=== PATIENT | female | born 1935 | race Caucasian/White ===

== ENCOUNTER 2017-05-24 07:56 | Inpatient (IN) | payer MEDICARE ==
[2017-05-24] VITALS (9 sets, daily range): BP systolic 98–137; BP diastolic 56–87
[~2017-05-24] VITALS: Ht 165.1 cm; Wt 60.0 kg
[2017-05-24] MEDS ORDERED: nitroGLYCERIN 0.2mg/hour patch TD ONE (08:05)
[2017-05-24] MEDS ORDERED: normal saline 1000ML IV soln IVB ONE (08:05)
[2017-05-24] MEDS ORDERED: magnesium 2GM in 50ml NS 50 ML IV ONE (08:10)
[2017-05-24] MEDS ORDERED: diltiazem 5mg/ml 5ml inj. IV ONE (08:20)
[2017-05-24 08:37] LABS: BASOPHILS % (AUTO) 0.4 % (0-1); EOSINOPHILS # (AUTO) 0.1 X10'3 (0-0.9); EOSINOPHILS % (AUTO) 1.6 % (0-6); HEMATOCRIT 42.6 % (35.0-45.0); HEMOGLOBIN 14.3 g/dl (12.0-16.0); LYMPHOCYTES # (AUTO) 1.3 X10'3 (1.1-4.8); LYMPHOCYTES % (AUTO) 22.7 % (21-51); MEAN CORPUSCULAR HEMOGLOBIN 30.4 PG (27.0-31.0); MEAN CORPUSCULAR HGB CONC 33.4 % (33.0-36.5); MEAN CORPUSCULAR VOLUME 90.9 FL (78-98); MEAN PLATELET VOLUME 8.5 FL (7.4-10.4); MONOCYTES # (AUTO) 0.4 X10'3 (0-0.9); MONOCYTES % (AUTO) 7.5 % (2-12); NEUTROPHILS % (AUTO) 67.8 % (42-75); PLATELET COUNT 215 X10'3 (140-440); RED BLOOD COUNT 4.69 X10'6 (4.20-5.60); RED CELL DISTRIBUTION WIDTH 14.1 % (11.5-14.5); WHITE BLOOD COUNT 5.9 X10'3 (4.5-11.0)
[2017-05-24 08:52] LABS: INR 1.1 INR; PARTIAL THROMBOPLASTIN TIME 39 SECONDS (22-32); PROTHROMBIN TIME 11.6 SECONDS (9.0-12.0)
[2017-05-24 09:08] LABS: CREATINE KINASE 41 U/L (26-192); ETHANOL < 0.010 GM/DL (0.0-0.010); LIPASE 132 U/L (73-393); MAGNESIUM 2.1 MG/DL (1.5-2.4); PHOSPHORUS 2.8 MG/DL (2.3-4.5)
[2017-05-24 09:31] LABS: CLARITY,URINE Clear (Clear); COLOR,URINE Dark Yellow (Yellow); GLUCOSE, URINE Negative (Neg); KETONES,URINE Negative (Neg); LEUKOCYTE ESTERASE ,URINE Negative (Neg); NITRITES, URINE Negative (Neg); OCCULT BLOOD,URINE Moderate (Neg); PH,URINE 5.5 (4.8-8.0); PROTEIN,URINE Negative (Neg)
[2017-05-24 09:32] LABS: UA COLLECTION TYPE STRAIGHT CATH
[2017-05-24 09:37] LABS: BACTERIA,URINE NONE SEEN /HPF (Neg); RBC,URINE 50-100 /HPF (0-2); SQUAMOUS EPITHELIAL CELL,UR NONE SEEN /LPF (FEW); WBC,URINE 0-4 /HPF (0-4)
[2017-05-24 09:38] LABS: HYALINE CASTS 0-3 /LPF (NEGATIVE); MUCUS STRANDS MODERATE /LPF (Neg)
[2017-05-24] MEDS ORDERED: LEVO75TA PO (10:17)
[2017-05-24] MEDS ORDERED: DABI150C PO (10:17)
[2017-05-24] MEDS ORDERED: GABA-532 PO (10:17)
[2017-05-24 10:20] LABS: ALANINE AMINOTRANSFERASE 19 U/L (12-78); ALBUMIN 3.4 G/DL (3.4-5.0); ALBUMIN/GLOBULIN RATIO 1.1 (1.1-1.5); ALKALINE PHOSPHATASE 74 IU/L (46-116); ANION GAP 10 (8-16); ASPARTATE AMINO TRANSFERASE 25 U/L (10-37); BILIRUBIN,TOTAL 0.4 MG/DL (0.1-1.0); BLOOD UREA NITROGEN 14 MG/DL (7-18); CALCIUM 8.9 MG/DL (8.5-10.1); CHLORIDE 108 MMOL/L (99-107); GLUCOSE 114 MG/DL (70-104); POTASSIUM 4.4 MMOL/L (3.5-5.1); SODIUM 144 MMOL/L (135-145); TOTAL CARBON DIOXIDE 25.7 MMOL/L (24-32); TOTAL PROTEIN 6.6 G/DL (6.4-8.2); eGFR 53 ML/MIN
[2017-05-24] MEDS ORDERED: TRAM50TA2 PO (10:21)
[2017-05-24] MEDS ORDERED: TRAZ150T78 PO (10:21)
[2017-05-24] MEDS ORDERED: ACET-812 PO (10:21)
[2017-05-24] MEDS ORDERED: dabigatran 150mg capsule PO ONE (10:25)
[2017-05-24] MEDS ORDERED: ondansetron/PF 4mg/2ml inj IV PRN (11:40)
[2017-05-24] MEDS ORDERED: metoprolol tartrate 1mg/ml inj IV PRN (11:40)
[2017-05-24] MEDS ORDERED: HYDROcodone/acetaminophen 10/325mg tab PO PRN (11:40)
[2017-05-24] MEDS ORDERED: potassium Cl 20 mEq SR tablet PO PRN ×2 (11:40)
[2017-05-24] MEDS ORDERED: magnesium hydroxide 30ml (MOM) UD suspension PO PRN (11:40)
[2017-05-24] MEDS ORDERED: magnesium 4gm in 100ml NS 100 ML IV PRN (11:40)
[2017-05-24] MEDS ORDERED: potassium Cl 40MEQ/NS 500ml 500 ML IV PRN ×2 (11:40)
[2017-05-24] MEDS ORDERED: regadenoson 0.4mg/5ml syringe IV ONE ×2 (11:40→13:32)
[2017-05-24] MEDS ORDERED: HYDROcodone/acetaminophen 5mg/325mg tablet PO PRN (11:40)
[2017-05-24] MEDS ORDERED: nitroGLYCERIN 0.4mg SUBLingual tab SL PRN (11:40)
[2017-05-24] MEDS ORDERED: mag hydrox/Alum hydrox/simeth 30ml oral suspension PO PRN (11:40)
[2017-05-24] MEDS ORDERED: aminophylline 250mg/10ml inj. IV PRN (11:40)
[2017-05-24] MEDS ORDERED: magnesium Cl slow-release 64mg tablet PO PRN (11:40)
[2017-05-24] MEDS ORDERED: acetaminophen 325mg tablet PO PRN (11:40)
[2017-05-24] MEDS ORDERED: magnesium 2GM in 50ml NS 50 ML IV PRN (11:40)
[2017-05-24] MEDS: normal saline 1000ml 1,000 ML IV SCH (12:17)
[2017-05-24] MEDS ORDERED: levoFLOXACIN 250mg tablet PO ONE (12:48)
[2017-05-24] MEDS ORDERED: aminophylline inj. 0 ML IV ONE (13:32)
[2017-05-24] MEDS: dabigatran 150mg capsule PO SCH (19:48)
[2017-05-24] MEDS: gabapentin 300mg capsule PO SCH (19:48)
[2017-05-24] MEDS ORDERED: temazepam 15mg capsule PO PRN (21:00)
[2017-05-24] MEDS: acetaminophen 325mg tablet PO PRN (22:39)
[2017-05-25] VITALS: BP 130/57
[2017-05-25] MEDS: normal saline 1000ml 1,000 ML IV SCH (01:51)
[2017-05-25 05:32] LABS: BASOPHILS % (AUTO) 0.3 % (0-1); EOSINOPHILS # (AUTO) 0.1 X10'3 (0-0.9); EOSINOPHILS % (AUTO) 2.2 % (0-6); HEMATOCRIT 38.3 % (35.0-45.0); HEMOGLOBIN 12.7 g/dl (12.0-16.0); LYMPHOCYTES # (AUTO) 1.4 X10'3 (1.1-4.8); MEAN CORPUSCULAR HEMOGLOBIN 30.5 PG (27.0-31.0); MEAN CORPUSCULAR HGB CONC 33.2 % (33.0-36.5); MEAN PLATELET VOLUME 8.8 FL (7.4-10.4); MONOCYTES # (AUTO) 0.4 X10'3 (0-0.9); MONOCYTES % (AUTO) 9.2 % (2-12); NEUTROPHILS # (AUTO) 2.5 X10'3 (1.8-7.7); NEUTROPHILS % (AUTO) 56.3 % (42-75); PLATELET COUNT 186 X10'3 (140-440); RED BLOOD COUNT 4.16 X10'6 (4.20-5.60); RED CELL DISTRIBUTION WIDTH 14.4 % (11.5-14.5); WHITE BLOOD COUNT 4.4 X10'3 (4.5-11.0)
[2017-05-25 06:14] LABS: ALBUMIN 2.9 G/DL (3.4-5.0); ANION GAP 8 (8-16); BLOOD UREA NITROGEN 13 MG/DL (7-18); CALCIUM 8.3 MG/DL (8.5-10.1); CHLORIDE 111 MMOL/L (99-107); GLUCOSE 80 MG/DL (70-104); MAGNESIUM 2.2 MG/DL (1.5-2.4); POTASSIUM 4.2 MMOL/L (3.5-5.1); SODIUM 145 MMOL/L (135-145); TOTAL CARBON DIOXIDE 25.9 MMOL/L (24-32); eGFR 53 ML/MIN
[2017-05-25 07:00] VITALS: BP 141/80
[2017-05-25] MEDS ORDERED: pantoprazole 40mg Tablet.DR PO SCH (07:30)
[2017-05-25] MEDS: acetaminophen 325mg tablet PO PRN (07:45)
[2017-05-25] MEDS ORDERED: levoTHYROXINE 75mcg tablet PO SCH (08:00)
[2017-05-25] MEDS ORDERED: enoxaparin 40mg/0.4ml syringe SQ SCH (08:00)
[2017-05-25] MEDS ORDERED: K and/or MAG REPLACEMENT MC SCH (08:00)
[2017-05-25] MEDS: gabapentin 300mg capsule PO SCH (08:32)
[2017-05-25] MEDS: dabigatran 150mg capsule PO SCH (08:32)
[2017-05-25] MEDS ORDERED: levoFLOXACIN 250mg tablet PO SCH (11:00)
[2017-05-25 11:19] VITALS: BP 133/75
[2017-05-25] MEDS ORDERED: ALPR-623 PO (11:43)
== END 2017-05-25 13:45 | disposition home or self-care (01) | DRG 880 ==
LOC: ER 07:56 → ED HOLD 11:04 → MED 3N 11:51
PROVIDERS: ADMIT Internal Medicine; ATTEND Internal Medicine
PROC: 4A02XM4 Measurement of Cardiac Total Activity, External Approach (ICD-10-PCS; principal; 2017-05-24)
PROC: 3E073KZ Introduction of Other Diagnostic Substance into Coronary Artery, Percutaneous Approach (ICD-10-PCS; 2017-05-24)
DX: F41.9 Anxiety disorder, unspecified (principal); I48.2 Chronic atrial fibrillation; R07.89 Other chest pain; E03.9 Hypothyroidism, unspecified; G47.30 Sleep apnea, unspecified; G89.4 Chronic pain syndrome; I10 Essential (primary) hypertension; M19.90 Unspecified osteoarthritis, unspecified site; M54.9 Dorsalgia, unspecified; Z88.2 Allergy status to sulfonamides; Z79.01 Long term (current) use of anticoagulants; Z79.899 Other long term (current) drug therapy; Z90.49 Acquired absence of other specified parts of digestive tract; Z90.710 Acquired absence of both cervix and uterus
CPT/HCPCS: 36415; 71045; 78452; 80048; 80053; 80320; 81001; 82550; 83605; 83690; 83735; 83880; 84100; 84145; 84484; 85025; 85610; 85730; 87070; 93005; 93017; 93306; 96365; 96375; 99285; A9500; J0280; J2785; J3475; J3490; J7030

== ENCOUNTER 2017-12-27 07:21 | Inpatient (IN) | payer MEDICARE ==
[~2017-12-27] VITALS: Ht 165.1 cm; Wt 68.6 kg
[~2017-12-27 07:21] MED LIST: ACET-812 PO; DABI150C PO; GABA-532 PO; LEVO75TA PO; TRAZ150T78 PO
[2017-12-27 07:38] LABS: BASOPHILS % (AUTO) 0.6 % (0-1); EOSINOPHILS # (AUTO) 0.1 X10'3 (0-0.9); HEMOGLOBIN 15.5 g/dl (12.0-16.0); LYMPHOCYTES # (AUTO) 1.3 X10'3 (1.1-4.8); LYMPHOCYTES % (AUTO) 22.5 % (21-51); MEAN CORPUSCULAR HEMOGLOBIN 30.7 PG (27.0-31.0); MEAN CORPUSCULAR HGB CONC 33.7 % (33.0-36.5); MEAN CORPUSCULAR VOLUME 91.1 FL (78-98); MEAN PLATELET VOLUME 8.3 FL (7.4-10.4); MONOCYTES # (AUTO) 0.4 X10'3 (0-0.9); MONOCYTES % (AUTO) 7.7 % (2-12); NEUTROPHILS # (AUTO) 3.9 X10'3 (1.8-7.7); NEUTROPHILS % (AUTO) 67.2 % (42-75); PLATELET COUNT 191 X10'3 (140-440); RED BLOOD COUNT 5.05 X10'6 (4.20-5.60); RED CELL DISTRIBUTION WIDTH 14.2 % (11.5-14.5); WHITE BLOOD COUNT 5.8 X10'3 (4.5-11.0)
[2017-12-27 07:51] LABS: INR 1.3 INR; PARTIAL THROMBOPLASTIN TIME 43 SECONDS (22-32); PROTHROMBIN TIME 13.7 SECONDS (9.0-12.0)
[2017-12-27 07:57] LABS: ALANINE AMINOTRANSFERASE 18 U/L (12-78); ALBUMIN 3.6 G/DL (3.4-5.0); ALKALINE PHOSPHATASE 84 IU/L (46-116); ANION GAP 10 (8-16); ASPARTATE AMINO TRANSFERASE 23 U/L (10-37); BILIRUBIN,TOTAL 0.6 MG/DL (0.1-1.0); BLOOD UREA NITROGEN 20 MG/DL (7-18); BUN/CREATININE RATIO 16.1 (6.6-38.0); CALCIUM 9.5 MG/DL (8.5-10.1); CHLORIDE 103 MMOL/L (99-107); CREATININE 1.24 MG/DL (0.40-0.90); GLUCOSE 103 MG/DL (70-104); SODIUM 142 MMOL/L (135-145); TOTAL CARBON DIOXIDE 29.4 MMOL/L (24-32); TOTAL PROTEIN 7.1 G/DL (6.4-8.2); eGFR 41 ML/MIN
[2017-12-27] MEDS ORDERED: nitroGLYCERIN 0.4mg/hour patch TD ONE (08:35)
[2017-12-27] MEDS ORDERED: ROSU5TAB11 (08:44)
[2017-12-27] MEDS ORDERED: normal saline 1000ml 1,000 ML IV ONE (09:15)
[2017-12-27 09:34] LABS: CLARITY,URINE CLEAR (Clear); COLOR,URINE YELLOW (Yellow); GLUCOSE, URINE NEGATIVE (Neg); KETONES,URINE NEGATIVE (Neg); LEUKOCYTE ESTERASE ,URINE NEGATIVE (Neg); NITRITES, URINE NEGATIVE (Neg); OCCULT BLOOD,URINE LARGE (Neg); PROTEIN,URINE NEGATIVE (Neg); UROBILINOGEN,URINE 0.2 E.U/dL (0.2-1.0)
[2017-12-27 09:39] LABS: UA COLLECTION TYPE CLN CATCH MIDSTREAM
[2017-12-27 09:40] LABS: BACTERIA,URINE NONE SEEN /HPF (Neg); MUCUS STRANDS FEW /LPF (Neg); RBC,URINE 20-50 /HPF (0-2); SQUAMOUS EPITHELIAL CELL,UR NONE SEEN /LPF (FEW); WBC,URINE 0-4 /HPF (0-4)
[2017-12-27] MEDS ORDERED: magnesium hydroxide 30ml (MOM) UD suspension PO PRN (10:00)
[2017-12-27] MEDS ORDERED: ondansetron/PF 4mg/2ml inj IV PRN (10:00)
[2017-12-27] MEDS ORDERED: morphine 4 MG/ML inj SYRINge IV PRN (10:00)
[2017-12-27] MEDS ORDERED: mag hydrox/Alum hydrox/simeth 30ml oral suspension PO PRN (10:00)
[2017-12-27] MEDS: normal saline 1000ml 1,000 ML IV SCH ×2 (10:27→19:57)
[2017-12-27] MEDS ORDERED: traZODone 150mg tablet PO PRN (11:30)
[2017-12-27 13:00] VITALS: BP 118/69
[2017-12-27 15:00] VITALS: BP 106/53
[2017-12-27 19:00] VITALS: BP 119/58
[2017-12-27] MEDS: gabapentin 300mg capsule PO SCH (19:53)
[2017-12-27] MEDS: dabigatran 150mg capsule PO SCH (19:53)
[2017-12-27] MEDS: acetaminophen 325mg tablet PO PRN (20:20)
[2017-12-27 23:00] VITALS: BP 102/57
[2017-12-28 03:00] VITALS: BP 125/74
[2017-12-28 05:59] LABS: ALBUMIN 2.7 G/DL (3.4-5.0); ANION GAP 4 (8-16); BLOOD UREA NITROGEN 16 MG/DL (7-18); BUN/CREATININE RATIO 16.3 (6.6-38.0); CALCIUM 8.1 MG/DL (8.5-10.1); CHLORIDE 109 MMOL/L (99-107); CREATININE 0.98 MG/DL (0.40-0.90); GLUCOSE 87 MG/DL (70-104); POTASSIUM 4.2 MMOL/L (3.5-5.1); SODIUM 142 MMOL/L (135-145); TOTAL CARBON DIOXIDE 29.3 MMOL/L (24-32); eGFR 54 ML/MIN
[2017-12-28 06:00] VITALS: BP 155/70
[2017-12-28 06:00] LABS: BASOPHILS % (AUTO) 0.5 % (0-1); EOSINOPHILS # (AUTO) 0.1 X10'3 (0-0.9); EOSINOPHILS % (AUTO) 1.7 % (0-6); HEMATOCRIT 35.6 % (35.0-45.0); HEMOGLOBIN 12.3 g/dl (12.0-16.0); LYMPHOCYTES # (AUTO) 1.2 X10'3 (1.1-4.8); LYMPHOCYTES % (AUTO) 21.8 % (21-51); MEAN CORPUSCULAR HEMOGLOBIN 31.6 PG (27.0-31.0); MEAN CORPUSCULAR HGB CONC 34.6 % (33.0-36.5); MEAN CORPUSCULAR VOLUME 91.4 FL (78-98); MEAN PLATELET VOLUME 8.9 FL (7.4-10.4); MONOCYTES # (AUTO) 0.5 X10'3 (0-0.9); MONOCYTES % (AUTO) 9.3 % (2-12); NEUTROPHILS # (AUTO) 3.5 X10'3 (1.8-7.7); NEUTROPHILS % (AUTO) 66.7 % (42-75); PLATELET COUNT 156 X10'3 (140-440); RED BLOOD COUNT 3.89 X10'6 (4.20-5.60); RED CELL DISTRIBUTION WIDTH 13.4 % (11.5-14.5); WHITE BLOOD COUNT 5.3 X10'3 (4.5-11.0)
[2017-12-28] MEDS: normal saline 1000ml 1,000 ML IV SCH ×2 (09:14→15:57)
[2017-12-28] MEDS: gabapentin 300mg capsule PO SCH ×2 (09:14→19:47)
[2017-12-28] MEDS: dabigatran 150mg capsule PO SCH ×2 (09:14→19:47)
[2017-12-28] MEDS: acetaminophen 325mg tablet PO PRN ×2 (09:15→19:47)
[2017-12-28] MEDS: levoTHYROXINE 75mcg tablet PO SCH (09:16)
[2017-12-28 11:00] VITALS: BP 140/65
[2017-12-28 15:00] VITALS: BP 157/68
[2017-12-28 19:00] VITALS: BP 154/77
[2017-12-28 23:00] VITALS: BP 133/71
[2017-12-29] VITALS (7 sets, daily range): BP systolic 123–170; BP diastolic 61–96
[2017-12-29] MEDS: normal saline 1000ml 1,000 ML IV SCH ×3 (01:57→14:22)
[2017-12-29 06:20] LABS: ALBUMIN 2.7 G/DL (3.4-5.0); ANION GAP 6 (8-16); BLOOD UREA NITROGEN 11 MG/DL (7-18); BUN/CREATININE RATIO 13.9 (6.6-38.0); CHLORIDE 109 MMOL/L (99-107); CREATININE 0.79 MG/DL (0.40-0.90); GLUCOSE 86 MG/DL (70-104); POTASSIUM 3.6 MMOL/L (3.5-5.1); SODIUM 141 MMOL/L (135-145); TOTAL CARBON DIOXIDE 26.5 MMOL/L (24-32); eGFR 70 ML/MIN
[2017-12-29 06:24] LABS: BASOPHILS % (AUTO) 0.8 % (0-1); EOSINOPHILS # (AUTO) 0.1 X10'3 (0-0.9); EOSINOPHILS % (AUTO) 2.8 % (0-6); HEMATOCRIT 35.2 % (35.0-45.0); HEMOGLOBIN 12.1 g/dl (12.0-16.0); LYMPHOCYTES # (AUTO) 1.1 X10'3 (1.1-4.8); LYMPHOCYTES % (AUTO) 25.5 % (21-51); MEAN CORPUSCULAR HEMOGLOBIN 31.6 PG (27.0-31.0); MEAN CORPUSCULAR HGB CONC 34.3 % (33.0-36.5); MEAN CORPUSCULAR VOLUME 92.2 FL (78-98); MEAN PLATELET VOLUME 9.2 FL (7.4-10.4); MONOCYTES # (AUTO) 0.4 X10'3 (0-0.9); MONOCYTES % (AUTO) 9.9 % (2-12); NEUTROPHILS # (AUTO) 2.8 X10'3 (1.8-7.7); PLATELET COUNT 154 X10'3 (140-440); RED BLOOD COUNT 3.82 X10'6 (4.20-5.60); RED CELL DISTRIBUTION WIDTH 12.9 % (11.5-14.5); WHITE BLOOD COUNT 4.4 X10'3 (4.5-11.0)
[2017-12-29] MEDS: gabapentin 300mg capsule PO SCH ×2 (07:55→19:59)
[2017-12-29] MEDS: dabigatran 150mg capsule PO SCH ×2 (07:56→19:59)
[2017-12-29] MEDS: levoTHYROXINE 75mcg tablet PO SCH (07:57)
[2017-12-29] MEDS ORDERED: potassium Cl 20 mEq SR tablet PO STA (10:25)
[2017-12-29] MEDS: metoprolol tartrate 25mg tablet PO SCH ×2 (10:58→19:59)
[2017-12-29] MEDS: amiodarone 200mg tablet PO SCH (12:32)
[2017-12-29] MEDS: acetaminophen 325mg tablet PO PRN (16:58)
[2017-12-30 03:00] VITALS: BP 141/61
[2017-12-30] MEDS: acetaminophen 325mg tablet PO PRN (03:56)
[2017-12-30 06:00] VITALS: BP 155/72
[2017-12-30 06:26] LABS: BASOPHILS % (AUTO) 0.4 % (0-1); EOSINOPHILS # (AUTO) 0.2 X10'3 (0-0.9); EOSINOPHILS % (AUTO) 3.4 % (0-6); HEMATOCRIT 35.1 % (35.0-45.0); HEMOGLOBIN 11.9 g/dl (12.0-16.0); LYMPHOCYTES # (AUTO) 1.2 X10'3 (1.1-4.8); LYMPHOCYTES % (AUTO) 22.3 % (21-51); MEAN CORPUSCULAR VOLUME 91.2 FL (78-98); MEAN PLATELET VOLUME 8.6 FL (7.4-10.4); MONOCYTES # (AUTO) 0.5 X10'3 (0-0.9); NEUTROPHILS # (AUTO) 3.3 X10'3 (1.8-7.7); NEUTROPHILS % (AUTO) 64.9 % (42-75); PLATELET COUNT 159 X10'3 (140-440); RED BLOOD COUNT 3.85 X10'6 (4.20-5.60); RED CELL DISTRIBUTION WIDTH 13.8 % (11.5-14.5); WHITE BLOOD COUNT 5.2 X10'3 (4.5-11.0)
[2017-12-30 06:47] LABS: ALBUMIN 2.6 G/DL (3.4-5.0); ANION GAP 7 (8-16); BLOOD UREA NITROGEN 13 MG/DL (7-18); BUN/CREATININE RATIO 14.4 (6.6-38.0); CALCIUM 8.2 MG/DL (8.5-10.1); CHLORIDE 109 MMOL/L (99-107); GLUCOSE 85 MG/DL (70-104); SODIUM 141 MMOL/L (135-145); eGFR 60 ML/MIN
[2017-12-30 06:51] LABS: POTASSIUM 4.1 MMOL/L (3.5-5.1)
[2017-12-30] MEDS: metoprolol tartrate 25mg tablet PO SCH (07:32)
[2017-12-30] MEDS: gabapentin 300mg capsule PO SCH (07:32)
[2017-12-30] MEDS: levoTHYROXINE 75mcg tablet PO SCH (07:32)
[2017-12-30] MEDS: amiodarone 200mg tablet PO SCH (07:33)
[2017-12-30] MEDS: dabigatran 150mg capsule PO SCH (07:33)
[2017-12-30] MEDS ORDERED: METO25TA6 PO (09:54)
[2017-12-30] MEDS ORDERED: AMIO200T40 PO (09:54)
[2017-12-30 11:00] VITALS: BP 159/66
== END 2017-12-30 12:45 | disposition home health service (06) | DRG 309 ==
LOC: ER 07:22 → ED HOLD 09:57 → EDBEDREQ 10:34 → CANBEDREQ 10:38 → PCU 3S 12:52
PROVIDERS: ADMIT Family Medicine; ATTEND Family Medicine
DX: I48.0 Paroxysmal atrial fibrillation (principal); N17.9 Acute kidney failure, unspecified; E86.0 Dehydration; I34.0 Nonrheumatic mitral (valve) insufficiency; E78.5 Hyperlipidemia, unspecified; E03.9 Hypothyroidism, unspecified; G89.29 Other chronic pain; I10 Essential (primary) hypertension; F41.9 Anxiety disorder, unspecified; M54.9 Dorsalgia, unspecified; W18.39XA Other fall on same level, initial encounter; M19.90 Unspecified osteoarthritis, unspecified site; S93.402A Sprain of unspecified ligament of left ankle, initial encounter; S83.92XA Sprain of unspecified site of left knee, initial encounter; Z90.49 Acquired absence of other specified parts of digestive tract; Z90.710 Acquired absence of both cervix and uterus; Z98.82 Breast implant status; Z88.2 Allergy status to sulfonamides; Z79.899 Other long term (current) drug therapy; Y92.098 Other place in other non-institutional residence as the place of occurrence of the external cause; Y93.89 Activity, other specified; Y99.8 Other external cause status
CPT/HCPCS: 36415; 70450; 71045; 73564; 73600; 80048; 80053; 81001; 83735; 84443; 84484; 85025; 85610; 85730; 87070; 93005; 93306; 93971; 97116; 97161; 97530; 99285; A4620; A6258; J7030

== ENCOUNTER 2018-01-15 08:08 | Emergency (ER) | payer MEDICARE ==
[~2018-01-15] VITALS: Ht 165.1 cm; Wt 59.1 kg
[~2018-01-15 08:08] MED LIST changes: +AMIO200T40 PO; +METO25TA6 PO; +ROSU5TAB11
[2018-01-15 08:39] LABS: BASOPHILS % (AUTO) 0.4 % (0-1); EOSINOPHILS # (AUTO) 0.1 X10'3 (0-0.9); EOSINOPHILS % (AUTO) 1.2 % (0-6); HEMATOCRIT 45.5 % (35.0-45.0); HEMOGLOBIN 14.9 g/dl (12.0-16.0); LYMPHOCYTES # (AUTO) 1.5 X10'3 (1.1-4.8); LYMPHOCYTES % (AUTO) 19.3 % (21-51); MEAN CORPUSCULAR HEMOGLOBIN 30.1 PG (27.0-31.0); MEAN CORPUSCULAR HGB CONC 32.8 % (33.0-36.5); MEAN CORPUSCULAR VOLUME 91.6 FL (78-98); MEAN PLATELET VOLUME 8.1 FL (7.4-10.4); MONOCYTES # (AUTO) 0.6 X10'3 (0-0.9); MONOCYTES % (AUTO) 7.2 % (2-12); NEUTROPHILS # (AUTO) 5.5 X10'3 (1.8-7.7); NEUTROPHILS % (AUTO) 71.9 % (42-75); PLATELET COUNT 270 X10'3 (140-440); RED BLOOD COUNT 4.96 X10'6 (4.20-5.60); WHITE BLOOD COUNT 7.7 X10'3 (4.5-11.0)
[2018-01-15 08:49] LABS: INR 1.3 INR; PARTIAL THROMBOPLASTIN TIME 47 SECONDS (22-32)
[2018-01-15 09:59] LABS: ALANINE AMINOTRANSFERASE 15 U/L (12-78); ALBUMIN 3.4 G/DL (3.4-5.0); ALBUMIN/GLOBULIN RATIO 0.9 (1.1-1.5); ALKALINE PHOSPHATASE 116 IU/L (46-116); ANION GAP 8 (8-16); ASPARTATE AMINO TRANSFERASE 26 U/L (10-37); BILIRUBIN,TOTAL 0.5 MG/DL (0.1-1.0); BLOOD UREA NITROGEN 20 MG/DL (7-18); BUN/CREATININE RATIO 17.5 (6.6-38.0); CALCIUM 9.1 MG/DL (8.5-10.1); CHLORIDE 103 MMOL/L (99-107); CREATININE 1.14 MG/DL (0.40-0.90); GLUCOSE 106 MG/DL (70-104); POTASSIUM 4.4 MMOL/L (3.5-5.1); SODIUM 139 MMOL/L (135-145); TOTAL CARBON DIOXIDE 28.3 MMOL/L (24-32); TOTAL PROTEIN 7.2 G/DL (6.4-8.2); eGFR 46 ML/MIN
[2018-01-15 10:00] LABS: CLARITY,URINE SLIGHTLY CLOUDY (Clear); COLOR,URINE YELLOW (Yellow); GLUCOSE, URINE NEGATIVE (Neg); KETONES,URINE NEGATIVE (Neg); LEUKOCYTE ESTERASE ,URINE NEGATIVE (Neg); NITRITES, URINE NEGATIVE (Neg); OCCULT BLOOD,URINE LARGE (Neg); PH,URINE 6.5 (4.8-8.0); PROTEIN,URINE NEGATIVE (Neg); UROBILINOGEN,URINE 0.2 E.U/dL (0.2-1.0)
[2018-01-15 10:03] LABS: UA COLLECTION TYPE CLN CATCH MIDSTREAM
[2018-01-15 10:06] LABS: MUCUS STRANDS FEW /LPF (Neg); SQUAMOUS EPITHELIAL CELL,UR FEW /LPF (FEW)
[2018-01-15 10:08] LABS: RBC,URINE 50-100 /HPF (0-2)
[2018-01-15 10:09] LABS: BACTERIA,URINE FEW /HPF (Neg); WBC,URINE 0-4 /HPF (0-4)
[2018-01-15 12:31] LABS: D-DIMER 0.23 MG/L FEU (0-0.50)
[2018-01-15 13:00] VITALS: BP 138/57
== END 2018-01-15 14:08 | disposition home or self-care (01) ==
LOC: ER 08:09
DX: R07.89 Other chest pain (principal); R42 Dizziness and giddiness; R31.9 Hematuria, unspecified; I48.91 Unspecified atrial fibrillation; I10 Essential (primary) hypertension; M19.90 Unspecified osteoarthritis, unspecified site; G89.29 Other chronic pain; Z90.49 Acquired absence of other specified parts of digestive tract; Z90.710 Acquired absence of both cervix and uterus; Z98.890 Other specified postprocedural states; Z88.2 Allergy status to sulfonamides; Z79.899 Other long term (current) drug therapy
CPT/HCPCS: 36415; 71045; 80053; 81001; 84484; 85025; 85379; 85610; 85730; 93005; 99285

== ENCOUNTER 2018-09-16 08:15 | Emergency (ER) | payer MEDICARE ==
[~2018-09-16] VITALS: Ht 165.1 cm; Wt 62.0 kg
[~2018-09-16 08:15] MED LIST changes: -ACET-812 PO; -AMIO200T40 PO; -TRAZ150T78 PO
[2018-09-16 08:48] LABS: BASOPHILS % (AUTO) 0.5 % (0-1); EOSINOPHILS % (AUTO) 0.4 % (0-6); HEMATOCRIT 43.4 % (35.0-45.0); HEMOGLOBIN 14.6 g/dl (12.0-16.0); LYMPHOCYTES # (AUTO) 1.8 X10'3 (1.1-4.8); LYMPHOCYTES % (AUTO) 27.9 % (21-51); MEAN CORPUSCULAR HEMOGLOBIN 30.9 PG (27.0-31.0); MEAN CORPUSCULAR HGB CONC 33.6 g/dL (33.0-36.5); MEAN CORPUSCULAR VOLUME 91.8 FL (78-98); MEAN PLATELET VOLUME 8.3 FL (7.4-10.4); MONOCYTES # (AUTO) 0.4 X10'3 (0-0.9); MONOCYTES % (AUTO) 5.8 % (2-12); NEUTROPHILS # (AUTO) 4.2 X10'3 (1.8-7.7); NEUTROPHILS % (AUTO) 65.4 % (42-75); PLATELET COUNT 185 X10'3 (140-440); RED BLOOD COUNT 4.73 X10'6 (4.20-5.60); RED CELL DISTRIBUTION WIDTH 14.1 % (11.5-14.5); WHITE BLOOD COUNT 6.4 X10'3 (4.5-11.0)
[2018-09-16 09:11] LABS: ALANINE AMINOTRANSFERASE 18 U/L (12-78); ALBUMIN 3.6 G/DL (3.4-5.0); ALBUMIN/GLOBULIN RATIO 1.1 (1.1-1.5); ALKALINE PHOSPHATASE 70 IU/L (46-116); ANION GAP 9 (8-16); ASPARTATE AMINO TRANSFERASE 20 U/L (10-37); BILIRUBIN,TOTAL 0.6 MG/DL (0.1-1.0); BLOOD UREA NITROGEN 20 MG/DL (7-18); BUN/CREATININE RATIO 17.7 (6.6-38.0); CALCIUM 9.1 MG/DL (8.5-10.1); CHLORIDE 105 MMOL/L (99-107); CREATININE 1.13 MG/DL (0.40-0.90); GLUCOSE 113 MG/DL (70-104); POTASSIUM 3.2 MMOL/L (3.5-5.1); SODIUM 140 MMOL/L (135-145); TOTAL CARBON DIOXIDE 25.8 MMOL/L (24-32); eGFR 46 ML/MIN
[2018-09-16] MEDS ORDERED: potassium Cl 20 mEq SR tablet PO STA (09:25)
--- NOTE | 2018-09-16 10:25 | NUR ---
CALL TO DAUGHTER ЕЛЕНА AT THIS TIME [phone] PER PATIENT REQUEST. NO ANSWER, LEFT MESSAGE.
[2018-09-16] MEDS: normal saline 1000ML IV soln IVB ONE ×2 (12:18→12:24)
--- NOTE | 2018-09-16 13:21 | NUR ---
CALL TO CT AT THIS TIME FOR UPDATE ON CTA, PER DIVING FISHER RENETTA, SHE SPOKE WITH DR ISBELL REGARDING GRF, AWAITING D-DIMER RESULTS PRIOR TO CTA PER DR ISBELL. PATIENT UPDATED, UPSET STATING SHE HAS BEEN HERE ALL DAY. ALL SAFETY MEASURES IN PLACE.
[2018-09-16 13:41] LABS: D-DIMER 0.21 MG/L FEU (0-0.50)
[2018-09-16 14:56] VITALS: BP 118/53
--- NOTE | 2018-09-16 14:57 | NUR ---
Phone call to daughter to inform his patient has been discharged, daughter on her way.
== END 2018-09-16 14:57 | disposition home or self-care (01) ==
LOC: ER 08:15
DX: R06.02 Shortness of breath (principal); R42 Dizziness and giddiness; R06.00 Dyspnea, unspecified; R11.0 Nausea; I10 Essential (primary) hypertension; M19.90 Unspecified osteoarthritis, unspecified site; G89.29 Other chronic pain; I48.91 Unspecified atrial fibrillation; Z90.49 Acquired absence of other specified parts of digestive tract; Z90.710 Acquired absence of both cervix and uterus; Z98.890 Other specified postprocedural states; Z88.2 Allergy status to sulfonamides; Z79.899 Other long term (current) drug therapy
CPT/HCPCS: 36415; 71045; 71250; 80053; 83735; 83880; 84484; 85025; 85379; 93005; 99284

== ENCOUNTER 2018-09-19 09:15 | Emergency (ER) | payer MEDICARE ==
[~2018-09-19] VITALS: Ht 165.1 cm; Wt 59.0 kg
[~2018-09-19 09:15] MED LIST changes: -METO25TA6 PO
[2018-09-19 10:13] LABS: BASOPHILS # (AUTO) 0.1 X10'3 (0-0.2); BASOPHILS % (AUTO) 0.9 % (0-1); EOSINOPHILS % (AUTO) 0.7 % (0-6); HEMATOCRIT 44.5 % (35.0-45.0); LYMPHOCYTES # (AUTO) 1.3 X10'3 (1.1-4.8); LYMPHOCYTES % (AUTO) 17.4 % (21-51); MEAN CORPUSCULAR HEMOGLOBIN 30.5 PG (27.0-31.0); MEAN CORPUSCULAR HGB CONC 33.6 g/dL (33.0-36.5); MEAN CORPUSCULAR VOLUME 90.8 FL (78-98); MEAN PLATELET VOLUME 8.6 FL (7.4-10.4); MONOCYTES # (AUTO) 0.6 X10'3 (0-0.9); MONOCYTES % (AUTO) 8.6 % (2-12); NEUTROPHILS # (AUTO) 5.5 X10'3 (1.8-7.7); NEUTROPHILS % (AUTO) 72.4 % (42-75); PLATELET COUNT 226 X10'3 (140-440); RED CELL DISTRIBUTION WIDTH 13.9 % (11.5-14.5); WHITE BLOOD COUNT 7.6 X10'3 (4.5-11.0)
[2018-09-19 10:20] LABS: ALANINE AMINOTRANSFERASE 21 U/L (12-78); ALBUMIN 3.6 G/DL (3.4-5.0); ALKALINE PHOSPHATASE 72 IU/L (46-116); ANION GAP 8 (8-16); ASPARTATE AMINO TRANSFERASE 24 U/L (10-37); BILIRUBIN,TOTAL 0.4 MG/DL (0.1-1.0); BLOOD UREA NITROGEN 26 MG/DL (7-18); BUN/CREATININE RATIO 20.5 (6.6-38.0); CALCIUM 9.2 MG/DL (8.5-10.1); CHLORIDE 103 MMOL/L (99-107); CREATININE 1.27 MG/DL (0.40-0.90); GLUCOSE 95 MG/DL (70-104); POTASSIUM 4.4 MMOL/L (3.5-5.1); SODIUM 140 MMOL/L (135-145); TOTAL CARBON DIOXIDE 28.6 MMOL/L (24-32); TOTAL PROTEIN 7.3 G/DL (6.4-8.2); eGFR 40 ML/MIN
[2018-09-19 10:38] LABS: INR 1.3 INR; PARTIAL THROMBOPLASTIN TIME 49 SECONDS (22-32)
[2018-09-19 11:40] LABS: CLARITY,URINE CLEAR (Clear); COLOR,URINE YELLOW (Yellow); GLUCOSE, URINE NEGATIVE (Neg); KETONES,URINE NEGATIVE (Neg); LEUKOCYTE ESTERASE ,URINE NEGATIVE (Neg); NITRITES, URINE NEGATIVE (Neg); OCCULT BLOOD,URINE LARGE (Neg); PROTEIN,URINE NEGATIVE (Neg); UA COLLECTION TYPE CLN CATCH MIDSTREAM; UROBILINOGEN,URINE 0.2 E.U/dL (0.2-1.0)
[2018-09-19 11:51] LABS: MUCUS STRANDS FEW /LPF (Neg); SQUAMOUS EPITHELIAL CELL,UR FEW /LPF (FEW)
[2018-09-19 11:52] LABS: RBC,URINE 50-100 /HPF (0-2)
[2018-09-19 11:55] LABS: BACTERIA,URINE FEW /HPF (Neg)
[2018-09-19] MEDS ORDERED: CefTRIAXone 2gm/D5W 50ml 50 ML IV ONE (12:40)
[2018-09-19] MEDS ORDERED: normal saline 1000ML IV soln IVB ONE (12:55)
[2018-09-19] MEDS ORDERED: CEPH250T PO (12:56)
[2018-09-19 15:07] VITALS: BP 137/61
== END 2018-09-19 15:09 | disposition home or self-care (01) ==
LOC: ER 09:15
DX: N39.0 Urinary tract infection, site not specified (principal); R55 Syncope and collapse; I10 Essential (primary) hypertension; I48.91 Unspecified atrial fibrillation; M19.90 Unspecified osteoarthritis, unspecified site; G89.29 Other chronic pain; Z90.710 Acquired absence of both cervix and uterus; Z88.2 Allergy status to sulfonamides; Z79.2 Long term (current) use of antibiotics; Z79.899 Other long term (current) drug therapy
CPT/HCPCS: 36415; 71045; 80053; 81001; 83880; 84484; 85025; 85610; 85730; 87088; 93005; 96365; 99284; J0696; J7030

== ENCOUNTER 2018-09-21 07:02 | Observation (INO) | payer MEDICARE ==
[~2018-09-21] VITALS: Ht 165.1 cm; Wt 59.0 kg
[~2018-09-21 07:02] MED LIST changes: +CEPH250T PO
[2018-09-21] MEDS ORDERED: ondansetron/PF 4mg/2ml inj IV ONE (07:10)
[2018-09-21] MEDS ORDERED: morphine 4 MG/ML inj SYRINge IV PRN (07:10)
[2018-09-21] MEDS ORDERED: normal saline 1000ML IV soln IVB ONE (07:10)
[2018-09-21 08:03] LABS: BASOPHILS % (AUTO) 0.8 % (0-1); EOSINOPHILS % (AUTO) 0.8 % (0-6); HEMATOCRIT 37.6 % (35.0-45.0); HEMOGLOBIN 12.6 g/dl (12.0-16.0); LYMPHOCYTES # (AUTO) 0.7 X10'3 (1.1-4.8); LYMPHOCYTES % (AUTO) 18.4 % (21-51); MEAN CORPUSCULAR HEMOGLOBIN 30.6 PG (27.0-31.0); MEAN CORPUSCULAR HGB CONC 33.5 g/dL (33.0-36.5); MEAN CORPUSCULAR VOLUME 91.3 FL (78-98); MEAN PLATELET VOLUME 8.3 FL (7.4-10.4); MONOCYTES # (AUTO) 0.4 X10'3 (0-0.9); MONOCYTES % (AUTO) 9.6 % (2-12); NEUTROPHILS # (AUTO) 2.8 X10'3 (1.8-7.7); NEUTROPHILS % (AUTO) 70.4 % (42-75); PLATELET COUNT 161 X10'3 (140-440); RED BLOOD COUNT 4.12 X10'6 (4.20-5.60); RED CELL DISTRIBUTION WIDTH 13.8 % (11.5-14.5)
[2018-09-21 08:22] LABS: ALANINE AMINOTRANSFERASE 19 U/L (12-78); ALBUMIN 3.1 G/DL (3.4-5.0); ALKALINE PHOSPHATASE 59 IU/L (46-116); ANION GAP 6 (8-16); ASPARTATE AMINO TRANSFERASE 22 U/L (10-37); BILIRUBIN,TOTAL 0.4 MG/DL (0.1-1.0); BLOOD UREA NITROGEN 19 MG/DL (7-18); BUN/CREATININE RATIO 18.4 (6.6-38.0); CALCIUM 8.5 MG/DL (8.5-10.1); CHLORIDE 107 MMOL/L (99-107); CREATININE 1.03 MG/DL (0.40-0.90); GLUCOSE 89 MG/DL (70-104); POTASSIUM 3.9 MMOL/L (3.5-5.1); SODIUM 140 MMOL/L (135-145); TOTAL CARBON DIOXIDE 27.2 MMOL/L (24-32); TOTAL PROTEIN 6.1 G/DL (6.4-8.2); eGFR 51 ML/MIN
[2018-09-21] MEDS ORDERED: CefTRIAXone 2gm/D5W 50ml 50 ML IV ONE (09:30)
[2018-09-21 09:52] LABS: CLARITY,URINE CLEAR (Clear); COLOR,URINE STRAW (Yellow); GLUCOSE, URINE NEGATIVE (Neg); KETONES,URINE NEGATIVE (Neg); LEUKOCYTE ESTERASE ,URINE NEGATIVE (Neg); NITRITES, URINE NEGATIVE (Neg); OCCULT BLOOD,URINE LARGE (Neg); PROTEIN,URINE NEGATIVE (Neg); UROBILINOGEN,URINE 0.2 E.U/dL (0.2-1.0)
[2018-09-21 10:14] LABS: UA COLLECTION TYPE NON-SPECIFIED
[2018-09-21 10:15] LABS: WBC,URINE 0-4 /HPF (0-4)
[2018-09-21 10:16] LABS: RBC,URINE 20-50 /HPF (0-2)
[2018-09-21 10:20] LABS: BACTERIA,URINE NONE SEEN /HPF (Neg); SQUAMOUS EPITHELIAL CELL,UR FEW /LPF (FEW)
[2018-09-21] MEDS ORDERED: GABA-532 PO (13:34)
[2018-09-21] MEDS ORDERED: DABI150C PO (13:34)
[2018-09-21] MEDS ORDERED: LEVO75TA7 PO (13:34)
[2018-09-21] MEDS ORDERED: FURO20TA4 PO (13:34)
[2018-09-21] MEDS ORDERED: POTA10TA10 PO (13:34)
[2018-09-21] MEDS ORDERED: ROSU5TAB PO (13:35)
[2018-09-21] MEDS ORDERED: metoclopramide 5 mg/ml inj IV PRN (14:00)
[2018-09-21] MEDS ORDERED: HYDROcodone/acetaminophen 10/325mg tab PO PRN (14:00)
[2018-09-21] MEDS ORDERED: potassium Cl 20 mEq SR tablet PO PRN ×2 (14:00)
[2018-09-21] MEDS ORDERED: magnesium Cl slow-release 64mg tablet PO PRN (14:00)
[2018-09-21] MEDS ORDERED: mag hydrox/Alum hydrox/simeth 30ml oral suspension PO PRN (14:00)
[2018-09-21] MEDS ORDERED: diphenhydrAMINE 50 mg/ml inj IV PRN (14:00)
[2018-09-21] MEDS ORDERED: magnesium 2GM in 50ml NS 50 ML IV PRN (14:00)
[2018-09-21] MEDS ORDERED: morphine 2 MG/ML inj. syringe IV PRN ×2 (14:00)
[2018-09-21] MEDS ORDERED: potassium Cl 40MEQ/NS 500ml 500 ML IV PRN ×2 (14:00)
[2018-09-21] MEDS ORDERED: ondansetron/PF 4mg/2ml inj IV PRN (14:00)
[2018-09-21] MEDS ORDERED: bisacodyl 10mg suppository rectal RC PRN (14:00)
[2018-09-21] MEDS ORDERED: acetaminophen 325mg tablet PO PRN ×2 (14:00)
[2018-09-21] MEDS ORDERED: acetaminophen 650mg rectal suppository RC PRN (14:00)
[2018-09-21] MEDS ORDERED: diphenhydrAMINE 25mg capsule PO PRN (14:00)
[2018-09-21] MEDS ORDERED: magnesium 4gm in 100ml NS 100 ML IV PRN (14:00)
[2018-09-21] MEDS ORDERED: magnesium hydroxide 30ml (MOM) UD suspension PO PRN (14:00)
[2018-09-21] MEDS ORDERED: HYDROcodone/acetaminophen 5mg/325mg tablet PO PRN (14:00)
[2018-09-21] MEDS ORDERED: tamsulosin 0.4mg capsule PO STA (14:17)
[2018-09-21] MEDS: K and/or MAG REPLACEMENT MC SCH (14:22)
--- NOTE | 2018-09-21 14:50 | NUR ---
Report received from REBECCA Fregoso
--- NOTE | 2018-09-21 14:52 | NUR ---
Patient in room . I have received report from Christopher FERNANDEZ in ER and had the opportunity to ask questions will assume patient care when patient comes to the floor.
--- NOTE | 2018-09-21 14:53 | NUR ---
Primary RN Ivory back from Lunch report given questions answered. Patient has not come to the floor yet.
--- NOTE | 2018-09-21 14:57 | NUR ---
Pt arrived to room 346A from ED
[2018-09-21 15:00] VITALS: BP 151/69
[2018-09-21 15:18] LABS: HEMOGLOBIN A1C 5.4 % (4.5-6.2)
[2018-09-21 17:33] LABS: CLARITY,URINE CLEAR (Clear); COLOR,URINE STRAW (Yellow); GLUCOSE, URINE NEGATIVE (Neg); KETONES,URINE NEGATIVE (Neg); LEUKOCYTE ESTERASE ,URINE NEGATIVE (Neg); NITRITES, URINE NEGATIVE (Neg); OCCULT BLOOD,URINE LARGE (Neg); PROTEIN,URINE NEGATIVE (Neg); UROBILINOGEN,URINE 0.2 E.U/dL (0.2-1.0)
[2018-09-21 17:36] LABS: UA COLLECTION TYPE CLN CATCH MIDSTREAM
[2018-09-21] MEDS: normal saline 1000ml 1,000 ML IV SCH (17:40)
[2018-09-21 17:50] LABS: MUCUS STRANDS FEW /LPF (Neg); SQUAMOUS EPITHELIAL CELL,UR FEW /LPF (FEW); TRANSITIONAL EPI CELLS,URINE MODERATE /HPF
[2018-09-21 17:51] LABS: BACTERIA,URINE NONE SEEN /HPF (Neg); RBC,URINE 50-100 /HPF (0-2); WBC,URINE 0-4 /HPF (0-4)
--- NOTE | 2018-09-21 18:25 | NUR ---
Problems reprioritized. Patient report given, questions answered & plan of care reviewed with REBECCA Zelaya & REBECCA Angelo.
--- NOTE | 2018-09-21 19:14 | NUR ---
Patient in room [facility] 346. I have received report from Thanh FERNANDEZ and had the opportunity to ask questions and assume patient care.
[2018-09-21 20:03] VITALS: BP 134/55
[2018-09-21 20:18] VITALS: BP_SYST 134; BP_SYST 135; BP_SYST 148; BP_DIAS 55; BP_DIAS 58; BP_DIAS 61
--- NOTE | 2018-09-21 20:18 | NUR ---
Patient in room [facility] 346. I have received report from Ivory FERNANDEZ and had the opportunity to ask questions and assume patient care.
[2018-09-21] MEDS: dabigatran 150mg capsule PO SCH (20:35)
[2018-09-21] MEDS: gabapentin 300mg capsule PO SCH (20:37)
[2018-09-21] MEDS ORDERED: atorvastatin 20mg tablet PO SCH (21:00)
[2018-09-21] MEDS ORDERED: temazepam 15mg capsule PO PRN (21:00)
[2018-09-22] VITALS: BP 139/69
[2018-09-22] MEDS: normal saline 1000ml 1,000 ML IV SCH ×2 (02:40→09:56)
[2018-09-22 05:25] LABS: BASOPHILS % (AUTO) 0.9 % (0-1); EOSINOPHILS # (AUTO) 0.1 X10'3 (0-0.9); HEMATOCRIT 37.7 % (35.0-45.0); HEMOGLOBIN 12.7 g/dl (12.0-16.0); LYMPHOCYTES % (AUTO) 25.1 % (21-51); MEAN CORPUSCULAR HEMOGLOBIN 30.7 PG (27.0-31.0); MEAN CORPUSCULAR HGB CONC 33.6 g/dL (33.0-36.5); MEAN CORPUSCULAR VOLUME 91.3 FL (78-98); MEAN PLATELET VOLUME 8.6 FL (7.4-10.4); MONOCYTES # (AUTO) 0.4 X10'3 (0-0.9); MONOCYTES % (AUTO) 9.5 % (2-12); NEUTROPHILS # (AUTO) 2.5 X10'3 (1.8-7.7); NEUTROPHILS % (AUTO) 62.5 % (42-75); PLATELET COUNT 166 X10'3 (140-440); RED BLOOD COUNT 4.13 X10'6 (4.20-5.60); RED CELL DISTRIBUTION WIDTH 13.8 % (11.5-14.5)
[2018-09-22 06:16] LABS: ALANINE AMINOTRANSFERASE 15 U/L (12-78); ALBUMIN 2.9 G/DL (3.4-5.0); ALBUMIN/GLOBULIN RATIO 0.9 (1.1-1.5); ALKALINE PHOSPHATASE 59 IU/L (46-116); ANION GAP 7 (8-16); ASPARTATE AMINO TRANSFERASE 15 U/L (10-37); BILIRUBIN,TOTAL 0.3 MG/DL (0.1-1.0); BLOOD UREA NITROGEN 16 MG/DL (7-18); BUN/CREATININE RATIO 15.1 (6.6-38.0); CALCIUM 8.3 MG/DL (8.5-10.1); CHLORIDE 108 MMOL/L (99-107); CHOL/HDL RATIO 2.4 (0.00-4.99); CHOLESTEROL 139 MG/DL (0-200); CREATININE 1.06 MG/DL (0.40-0.90); GLUCOSE 85 MG/DL (70-104); HDL CHOLESTEROL 57 MG/DL (35-60); LDL CHOLESTEROL 67 MG/DL (50-100); MAGNESIUM 2.1 MG/DL (1.5-2.4); PHOSPHORUS 3.6 MG/DL (2.3-4.5); POTASSIUM 4.2 MMOL/L (3.5-5.1); SODIUM 142 MMOL/L (135-145); TOTAL CARBON DIOXIDE 26.6 MMOL/L (24-32); TRIGLYCERIDES 86 MG/DL (20-135); eGFR 50 ML/MIN
--- NOTE | 2018-09-22 06:30 | NUR ---
Patient in room [facility] 346. I have received report from REBECCA Zelaya and had the opportunity to ask questions and assume patient care.
--- NOTE | 2018-09-22 06:48 | NUR ---
Problems reprioritized. Patient report given, questions answered & plan of care reviewed with Vee FERNANDEZ.
--- NOTE | 2018-09-22 06:56 | NUR ---
Problems reprioritized. Patient report given, questions answered & plan of care reviewed with Vee FERNANDEZ.
[2018-09-22] MEDS ORDERED: levoTHYROXINE 75mcg tablet PO SCH (07:00)
[2018-09-22 07:30] VITALS: BP 139/70
[2018-09-22] MEDS ORDERED: potassium Cl 20 mEq SR tablet PO SCH (08:00)
[2018-09-22] MEDS ORDERED: CefTRIAXone/D5W-Rocephin 1gm 50 ML IV SCH (08:00)
[2018-09-22] MEDS ORDERED: furosemide 20MG tablet PO SCH (08:00)
[2018-09-22] MEDS: K and/or MAG REPLACEMENT MC SCH (08:00)
[2018-09-22] MEDS: dabigatran 150mg capsule PO SCH (08:25)
[2018-09-22] MEDS: gabapentin 300mg capsule PO SCH (08:25)
[2018-09-22] MEDS ORDERED: CEFD300C3 PO (09:43)
[2018-09-22] MEDS ORDERED: tamsulosin capsule PO (09:43)
--- NOTE | 2018-09-22 10:18 | NUR ---
PAGER ID: [phone] MESSAGE: [id number]. [place]. I saw you put D/C ordered in, would you like to see the pt before they D/C? thank you. Ron FERNANDEZ ext [phone]
[2018-09-22 10:54] VITALS: BP_SYST 132; BP_SYST 135; BP_SYST 142; BP_DIAS 62; BP_DIAS 63; BP_DIAS 66
[2018-09-22 10:58] VITALS: BP 132/62
--- NOTE | 2018-09-22 12:00 | NUR ---
Reviewed discharge instructions and new medications with pt, pt verbalized understanding and all questions answered. IV's removed. [facility] brought new prescription meds to pts bedside. Pt is dressed and resting comfortably waiting for her daughter to pick her up.
--- NOTE | 2018-09-22 13:15 | NUR ---
RN noticed pt to not be in room. RN previously asked pt when RN was going over pts discharge instructions to let nursing staff know when pts ride was here for discharge and we would accompany her downstairs. All pts belongings were gone out of room. Nursing staff walked around the unit and looked for pt with no success. Appears pt walked herself downstairs for discharge without notifying anyone of her departure.
[2018-09-22] MEDS ORDERED: tamsulosin 0.4mg capsule PO SCH (21:00)
== END 2018-09-22 13:45 | disposition home or self-care (01) ==
LOC: ER 07:03 → EDBEDREQ 14:19 → SUR 3N 15:01
PROVIDERS: ADMIT Family Medicine; ATTEND Family Medicine
DX: N13.2 Hydronephrosis with renal and ureteral calculous obstruction (principal); I48.2 Chronic atrial fibrillation; E03.9 Hypothyroidism, unspecified; N17.9 Acute kidney failure, unspecified; E86.0 Dehydration; E78.5 Hyperlipidemia, unspecified; Z90.710 Acquired absence of both cervix and uterus; I10 Essential (primary) hypertension; G89.29 Other chronic pain; M54.9 Dorsalgia, unspecified; M19.90 Unspecified osteoarthritis, unspecified site; Z79.02 Long term (current) use of antithrombotics/antiplatelets
CPT/HCPCS: 36415; 74176; 80053; 80061; 81001; 83036; 83735; 84100; 84443; 85025; 87070; 96365; 96366; 96375; 97161; 97535; 99284; G0378; J0696; J2270; J2405; J7030

== ENCOUNTER 2019-02-27 08:02 | Observation (INO) | payer MEDICARE ==
[~2019-02-27] VITALS: Ht 165.1 cm; Wt 55.2 kg
[~2019-02-27 08:02] MED LIST changes: -CEPH250T PO; +FURO20TA4 PO; -LEVO75TA PO; +LEVO75TA7 PO; +POTA10TA10 PO; +ROSU5TAB PO; -ROSU5TAB11; +tamsulosin capsule PO
[2019-02-27] MEDS ORDERED: aspirin 81mg tab.chew PO ONE (08:35)
[2019-02-27 09:02] LABS: EOSINOPHILS # (AUTO) 0.2 X10'3 (0-0.9); EOSINOPHILS % (AUTO) 4.9 % (0-6); HEMOGLOBIN 13.7 g/dl (12.0-16.0); LYMPHOCYTES % (AUTO) 19.5 % (21-51); MEAN CORPUSCULAR HEMOGLOBIN 30.5 PG (27.0-31.0); MEAN CORPUSCULAR HGB CONC 33.4 g/dL (33.0-36.5); MEAN CORPUSCULAR VOLUME 91.5 FL (78-98); MEAN PLATELET VOLUME 8.1 FL (7.4-10.4); MONOCYTES # (AUTO) 0.4 X10'3 (0-0.9); MONOCYTES % (AUTO) 8.6 % (2-12); NEUTROPHILS # (AUTO) 3.2 X10'3 (1.8-7.7); PLATELET COUNT 220 X10'3 (140-440); RED BLOOD COUNT 4.48 X10'6 (4.20-5.60); RED CELL DISTRIBUTION WIDTH 13.3 % (11.5-14.5); WHITE BLOOD COUNT 4.9 X10'3 (4.5-11.0)
[2019-02-27 09:15] LABS: ALANINE AMINOTRANSFERASE 16 U/L (12-78); ALBUMIN/GLOBULIN RATIO 0.8 (1.1-1.5); ALKALINE PHOSPHATASE 82 IU/L (46-116); ANION GAP 6 (8-16); ASPARTATE AMINO TRANSFERASE 25 U/L (10-37); BILIRUBIN,TOTAL 0.4 MG/DL (0.1-1.0); BLOOD UREA NITROGEN 15 MG/DL (7-18); BUN/CREATININE RATIO 12.9 (6.6-38.0); CALCIUM 8.9 MG/DL (8.5-10.1); CHLORIDE 106 MMOL/L (99-107); CREATININE 1.16 MG/DL (0.40-0.90); GLUCOSE 94 MG/DL (70-104); POTASSIUM 4.2 MMOL/L (3.5-5.1); SODIUM 140 MMOL/L (135-145); TOTAL CARBON DIOXIDE 27.6 MMOL/L (24-32); TOTAL PROTEIN 6.7 G/DL (6.4-8.2); eGFR 45 ML/MIN
[2019-02-27 09:23] LABS: MAGNESIUM 2.2 MG/DL (1.5-2.4)
[2019-02-27] MEDS ORDERED: iohexol 350MG/ML 100ml bottle IV ONE (09:26)
[2019-02-27] MEDS ORDERED: magnesium Cl slow-release 64mg tablet PO PRN (10:55)
[2019-02-27] MEDS ORDERED: magnesium 4gm in 100ml NS 100 ML IV PRN (10:55)
[2019-02-27] MEDS ORDERED: potassium CL 10mEq/100ml bag 100 ML IV PRN ×2 (10:55)
[2019-02-27] MEDS ORDERED: ondansetron/PF 4mg/2ml inj IV PRN (10:55)
[2019-02-27] MEDS ORDERED: potassium Cl 20 mEq SR tablet PO PRN ×2 (10:55)
[2019-02-27] MEDS ORDERED: magnesium 2GM in 50ml NS 50 ML IV PRN (10:55)
--- NOTE | 2019-02-27 10:58 | NUR ---
DAUGHTER CALLED TO CHECK ON PT. VERBAL OKAY TO SPEAK WITH DAUGHTER. UPDATED ABOUT ADMISSION. DAUGHTER STATES PT DOES HAVE SOME EARLY DEMENTIA AND HAS BEEN SEEN HERE SEVERAL TIMES IN THE PAST FOR SAME AND HAD MULTIPLE CARDIAC W/U WITHOUT ANY FINDINGS. DAUGHTER WAS DRIVING TO [place] AND STATED SHE WOULD TURN AROUND AND COME IN THEN CALL DROPPED.
[2019-02-27] MEDS: pantoprazole 40mg Tablet.DR PO SCH (11:00)
[2019-02-27] MEDS ORDERED: MULT-1133 (11:34)
[2019-02-27] MEDS ORDERED: TETR-47 OP (11:34)
[2019-02-27] MEDS ORDERED: MAGN400C PO (11:34)
[2019-02-27] MEDS ORDERED: [UNRECOGNIZED DRUG - REMARK] (11:35)
[2019-02-27] MEDS ORDERED: MELA3TAB64 PO (11:36)
[2019-02-27] MEDS ORDERED: pantoprazole 40mg Tablet.DR PO ONE (12:00)
--- NOTE | 2019-02-27 13:34 | NUR ---
pt had lunch and ate most of it.
--- NOTE | 2019-02-27 14:10 | NUR ---
Patient arrived to ACCE room 312 at this time.
[2019-02-27 14:59] VITALS: BP 121/62
[2019-02-27] MEDS ORDERED: nitroGLYCERIN 0.4mg SUBLingual tab SL PRN (16:15)
[2019-02-27 17:27] VITALS: BP 145/78
[2019-02-27 18:00] VITALS: BP 145/78
--- NOTE | 2019-02-27 18:00 | NUR ---
Patient in room MED 312. I have received report from Mica FERNANDEZ and had the opportunity to ask questions and assume patient care.
--- NOTE | 2019-02-27 18:26 | NUR ---
Problems reprioritized. Patient report given, questions answered & plan of care reviewed with Chayito FERNANDEZ.
--- NOTE | 2019-02-27 19:00 | NUR ---
cl;arified code status with patient and dr. damon per phone conversation at [phone]; Dr. Damon stated she would change code status to DNR per patients wishes, and order change in computer.DNR band put on patient
[2019-02-27] MEDS: heparin, porcine 5000 units/ml vial SQ SCH (20:29)
[2019-02-27] MEDS: acetaminophen 325mg tablet PO PRN (21:36)
[2019-02-27 22:00] VITALS: BP 145/58
[2019-02-28] VITALS (12 sets, daily range): BP systolic 117–161; BP diastolic 53–74
[2019-02-28] MEDS: acetaminophen 325mg tablet PO PRN (05:49)
--- NOTE | 2019-02-28 06:30 | NUR ---
Patient in room MED 312. I have received report from Chayito FERNANDEZ and had the opportunity to ask questions and assume patient care.
--- NOTE | 2019-02-28 06:31 | NUR ---
Problems reprioritized. Patient report given, questions answered & plan of care reviewed with Abdirahman FERNANDEZ.
[2019-02-28 06:33] LABS: ALBUMIN 2.9 G/DL (3.4-5.0); ANION GAP 8 (8-16); BLOOD UREA NITROGEN 17 MG/DL (7-18); BUN/CREATININE RATIO 15.3 (6.6-38.0); CALCIUM 8.9 MG/DL (8.5-10.1); CHLORIDE 105 MMOL/L (99-107); CREATININE 1.11 MG/DL (0.40-0.90); GLUCOSE 86 MG/DL (70-104); MAGNESIUM 2.2 MG/DL (1.5-2.4); POTASSIUM 3.8 MMOL/L (3.5-5.1); SODIUM 140 MMOL/L (135-145); TOTAL CARBON DIOXIDE 27.1 MMOL/L (24-32); eGFR 47 ML/MIN
[2019-02-28 06:43] LABS: BASOPHILS # (AUTO) 0.1 X10'3 (0-0.2); BASOPHILS % (AUTO) 1.9 % (0-1); EOSINOPHILS # (AUTO) 0.3 X10'3 (0-0.9); EOSINOPHILS % (AUTO) 8.8 % (0-6); HEMATOCRIT 40.6 % (35.0-45.0); HEMOGLOBIN 13.7 g/dl (12.0-16.0); LYMPHOCYTES % (AUTO) 25.2 % (21-51); MEAN CORPUSCULAR HEMOGLOBIN 30.9 PG (27.0-31.0); MEAN CORPUSCULAR HGB CONC 33.8 g/dL (33.0-36.5); MEAN CORPUSCULAR VOLUME 91.4 FL (78-98); MEAN PLATELET VOLUME 8.7 FL (7.4-10.4); MONOCYTES # (AUTO) 0.4 X10'3 (0-0.9); MONOCYTES % (AUTO) 11.3 % (2-12); NEUTROPHILS % (AUTO) 52.8 % (42-75); PLATELET COUNT 202 X10'3 (140-440); RED BLOOD COUNT 4.44 X10'6 (4.20-5.60); RED CELL DISTRIBUTION WIDTH 13.2 % (11.5-14.5); WHITE BLOOD COUNT 3.9 X10'3 (4.5-11.0)
[2019-02-28] MEDS ORDERED: aminophylline 250mg/10ml inj. IV PRN (07:00)
[2019-02-28] MEDS ORDERED: regadenoson 0.4mg/5ml syringe IV ONE (07:00)
[2019-02-28] MEDS ORDERED: metoprolol tartrate 1mg/ml inj IV PRN (07:00)
[2019-02-28] MEDS: heparin, porcine 5000 units/ml vial SQ SCH (08:00)
[2019-02-28] MEDS ORDERED: K and/or MAG REPLACEMENT MC SCH (08:00)
[2019-02-28] MEDS: pantoprazole 40mg Tablet.DR PO SCH (08:23)
[2019-02-28] MEDS ORDERED: magnesium oxide 400mg tablet PO SCH (10:14)
--- NOTE | 2019-02-28 12:56 | NUR ---
PAGED HOSPITALIST, "NATALIE [phone] [phone] PRVENCE, PAPITO GARCIA RESULTED." NOTED DISCHARGE ORDERS, OKAY FOR PATIENT TO EAT, PLACED LUNCH TRAY IN ROOM FOR PATIENT. SHE WAS VERY HAPPY TO EAT.
--- NOTE | 2019-02-28 13:38 | NUR ---
PAGED HOSPITALIST, "NATALIE [phone] PENDING DISCHARGE PER ONLINE MD DISCHARGE FORM TO BE FILLED OUT."
--- NOTE | 2019-02-28 14:47 | NUR ---
DISCUSSED DISCHARGE INSTRUCTIONS WITH PATIENT, VERBALIZED UNDERSTANDING. IV REMOVED, CATHLON INTACT. TELE DC'D. VSS. EAGER TO GO HOME, BELONGINGS TO BE PICKED UP FROM SECURITY BY PATIENT. DAUGHTER ON HER WAY TO COME GET HER. PER PATIENT PRIVATE VEHICLE.
--- NOTE | 2019-02-28 15:10 | NUR ---
PATIENT DISCHARGED AT THIS TIME, ESCORTED OUT VIA AMBULATION WITHOUT EVENT.
[2019-02-28] MEDS ORDERED: dabigatran 150mg capsule PO SCH (20:00)
[2019-03-01] MEDS ORDERED: levoTHYROXINE 75mcg tablet PO SCH (07:00)
[2019-03-01] MEDS ORDERED: atorvastatin 10mg tablet PO SCH (08:00)
== END 2019-02-28 15:15 | disposition home or self-care (01) ==
LOC: ER 08:02 → ED HOLD 11:00 → MED 3N 14:10
PROVIDERS: ADMIT Internal Medicine; ATTEND Internal Medicine
DX: R07.89 Other chest pain (principal); R06.02 Shortness of breath; I44.0 Atrioventricular block, first degree; I48.20 Chronic atrial fibrillation, unspecified; I10 Essential (primary) hypertension; M19.90 Unspecified osteoarthritis, unspecified site; E78.5 Hyperlipidemia, unspecified; E03.9 Hypothyroidism, unspecified; G89.29 Other chronic pain; M54.9 Dorsalgia, unspecified; Z90.49 Acquired absence of other specified parts of digestive tract; Z90.710 Acquired absence of both cervix and uterus; Z79.01 Long term (current) use of anticoagulants; Z79.899 Other long term (current) drug therapy; Z88.2 Allergy status to sulfonamides
CPT/HCPCS: 36415; 71045; 71275; 78452; 80048; 80053; 83735; 83880; 84484; 85025; 87081; 93005; 93017; 93306; 93971; 96372; 96374; 99284; A9500; G0378; J0280; J1644; J2785; Q9967

== ENCOUNTER 2019-06-21 11:12 | Emergency (ER) | payer MEDICARE ==
[~2019-06-21] VITALS: Ht 165.1 cm; Wt 58.2 kg
[~2019-06-21 11:12] MED LIST changes: -FURO20TA4 PO; -GABA-532 PO; +MAGN400C PO; +MELA3TAB64 PO; +MULT-1133; -POTA10TA10 PO; +TETR-47 OP; +[UNRECOGNIZED DRUG - REMARK] PO; -tamsulosin capsule PO
[2019-06-21 11:36] LABS: BASOPHILS # (AUTO) 0.1 X10'3 (0-0.2); BASOPHILS % (AUTO) 0.8 % (0-1); EOSINOPHILS % (AUTO) 0.3 % (0-6); HEMATOCRIT 42.7 % (35.0-45.0); HEMOGLOBIN 14.5 g/dl (12.0-16.0); MEAN CORPUSCULAR HEMOGLOBIN 30.8 PG (27.0-31.0); MEAN CORPUSCULAR HGB CONC 34.1 g/dL (33.0-36.5); MEAN CORPUSCULAR VOLUME 90.3 FL (78-98); MEAN PLATELET VOLUME 8.7 FL (7.4-10.4); MONOCYTES # (AUTO) 0.4 X10'3 (0-0.9); MONOCYTES % (AUTO) 5.8 % (2-12); NEUTROPHILS # (AUTO) 5.9 X10'3 (1.8-7.7); NEUTROPHILS % (AUTO) 79.1 % (42-75); PLATELET COUNT 201 X10'3 (140-440); RED BLOOD COUNT 4.73 X10'6 (4.20-5.60); WHITE BLOOD COUNT 7.4 X10'3 (4.5-11.0)
[2019-06-21 11:48] LABS: ALANINE AMINOTRANSFERASE 10 U/L (12-78); ALBUMIN 3.5 G/DL (3.4-5.0); ALBUMIN/GLOBULIN RATIO 1.2 (1.1-1.5); ALKALINE PHOSPHATASE 80 IU/L (46-116); ANION GAP 9 (8-16); ASPARTATE AMINO TRANSFERASE 24 U/L (10-37); BILIRUBIN,TOTAL 0.6 MG/DL (0.1-1.0); BLOOD UREA NITROGEN 26 MG/DL (7-18); BUN/CREATININE RATIO 24.8 (6.6-38.0); CHLORIDE 107 MMOL/L (99-107); CREATININE 1.05 MG/DL (0.40-0.90); GLUCOSE 109 MG/DL (70-104); POTASSIUM 4.2 MMOL/L (3.5-5.1); SODIUM 140 MMOL/L (135-145); TOTAL CARBON DIOXIDE 23.6 MMOL/L (24-32); TOTAL PROTEIN 6.5 G/DL (6.4-8.2); eGFR 50 ML/MIN
[2019-06-21] MEDS ORDERED: MULT-85 PO (13:35)
[2019-06-21 14:31] VITALS: BP 123/73
== END 2019-06-21 14:33 | disposition home or self-care (01) ==
LOC: ER 11:12
DX: R07.89 Other chest pain (principal); I48.91 Unspecified atrial fibrillation; I10 Essential (primary) hypertension; M19.90 Unspecified osteoarthritis, unspecified site; G89.29 Other chronic pain; Z90.49 Acquired absence of other specified parts of digestive tract; Z90.710 Acquired absence of both cervix and uterus; Z98.890 Other specified postprocedural states; Z88.2 Allergy status to sulfonamides; Z79.899 Other long term (current) drug therapy
CPT/HCPCS: 36415; 71045; 80053; 84484; 85025; 93005; 99285

== ENCOUNTER 2019-06-24 08:11 | Emergency (ER) | payer MEDICARE ==
[~2019-06-24] VITALS: Ht 165.1 cm; Wt 68.2 kg
[~2019-06-24 08:11] MED LIST changes: -MULT-1133; +MULT-85 PO; -TETR-47 OP
[2019-06-24] MEDS ORDERED: ondansetron/PF 4mg/2ml inj IV ONE (08:30)
[2019-06-24] MEDS ORDERED: LORazepam 2 mg/ml vial IV ONE (08:30)
[2019-06-24] MEDS ORDERED: normal saline 1000ML IV soln IVB ONE (08:30)
[2019-06-24 08:53] LABS: BASOPHILS % (AUTO) 0.8 % (0-1); EOSINOPHILS % (AUTO) 0.7 % (0-6); HEMATOCRIT 40.7 % (35.0-45.0); HEMOGLOBIN 13.9 g/dl (12.0-16.0); LYMPHOCYTES # (AUTO) 0.9 X10'3 (1.1-4.8); LYMPHOCYTES % (AUTO) 16.3 % (21-51); MEAN CORPUSCULAR HGB CONC 34.2 g/dL (33.0-36.5); MEAN CORPUSCULAR VOLUME 90.8 FL (78-98); MEAN PLATELET VOLUME 8.7 FL (7.4-10.4); MONOCYTES # (AUTO) 0.3 X10'3 (0-0.9); MONOCYTES % (AUTO) 5.7 % (2-12); NEUTROPHILS # (AUTO) 4.2 X10'3 (1.8-7.7); NEUTROPHILS % (AUTO) 76.5 % (42-75); PLATELET COUNT 184 X10'3 (140-440); RED BLOOD COUNT 4.48 X10'6 (4.20-5.60); RED CELL DISTRIBUTION WIDTH 13.8 % (11.5-14.5); WHITE BLOOD COUNT 5.5 X10'3 (4.5-11.0)
[2019-06-24 09:06] LABS: TOTAL PROTEIN 6.5 G/DL (6.4-8.2)
[2019-06-24 09:10] LABS: ALANINE AMINOTRANSFERASE 14 U/L (12-78); ALBUMIN 3.3 G/DL (3.4-5.0); ALKALINE PHOSPHATASE 80 IU/L (46-116); ANION GAP 7 (8-16); ASPARTATE AMINO TRANSFERASE 22 U/L (10-37); BILIRUBIN,TOTAL 0.6 MG/DL (0.1-1.0); BLOOD UREA NITROGEN 18 MG/DL (7-18); BUN/CREATININE RATIO 16.7 (6.6-38.0); CALCIUM 8.8 MG/DL (8.5-10.1); CHLORIDE 108 MMOL/L (99-107); CREATININE 1.08 MG/DL (0.40-0.90); GLUCOSE 94 MG/DL (70-104); POTASSIUM 3.9 MMOL/L (3.5-5.1); SODIUM 143 MMOL/L (135-145); TOTAL CARBON DIOXIDE 27.8 MMOL/L (24-32); eGFR 48 ML/MIN
--- NOTE | 2019-06-24 10:27 | NUR ---
son demarcus [phone] [facility] [phone]
[2019-06-24 10:30] LABS: COLOR,URINE YELLOW (Yellow); GLUCOSE, URINE NEGATIVE (Neg); KETONES,URINE NEGATIVE (Neg); LEUKOCYTE ESTERASE ,URINE NEGATIVE (Neg); NITRITES, URINE NEGATIVE (Neg); OCCULT BLOOD,URINE LARGE (Neg); PROTEIN,URINE NEGATIVE (Neg); UROBILINOGEN,URINE 0.2 E.U/dL (0.2-1.0)
[2019-06-24 10:32] LABS: CLARITY,URINE SLIGHTLY CLOUDY (Clear); UA COLLECTION TYPE VOIDED
[2019-06-24 10:41] LABS: MUCUS STRANDS FEW /LPF (Neg); SQUAMOUS EPITHELIAL CELL,UR FEW /LPF (FEW)
[2019-06-24 10:42] LABS: BACTERIA,URINE FEW /HPF (Neg); RBC,URINE 50-100 /HPF (0-2); WBC,URINE 0-4 /HPF (0-4)
--- NOTE | 2019-06-24 11:07 | NUR ---
CALLED PT'S DAUGHTER TO ASK FOR A PICKUP OF PT WHEN DC'ed WAS ABLE TO LEAVE A MESSAGE.
[2019-06-24] MEDS ORDERED: MECL-184 PO (12:42)
[2019-06-24 13:40] VITALS: BP 132/80
== END 2019-06-24 13:23 | disposition home or self-care (01) ==
LOC: ER 08:12
DX: R42 Dizziness and giddiness (principal); R11.0 Nausea; E86.0 Dehydration; I48.91 Unspecified atrial fibrillation; I10 Essential (primary) hypertension; M19.90 Unspecified osteoarthritis, unspecified site; G89.29 Other chronic pain; Z90.49 Acquired absence of other specified parts of digestive tract; Z90.710 Acquired absence of both cervix and uterus; Z98.890 Other specified postprocedural states; Z88.2 Allergy status to sulfonamides; Z79.899 Other long term (current) drug therapy
CPT/HCPCS: 36415; 80053; 81001; 84484; 85025; 93005; 96361; 96374; 96375; 99284; J2060; J2405; J7030

== ENCOUNTER 2020-04-10 14:04 | Emergency (ER) | payer MEDICARE ==
[~2020-04-10] VITALS: Ht 160 cm; Wt 62.0 kg
[~2020-04-10 14:04] MED LIST changes: +MECL-184 PO; +MELA3TAB39 PO; -MELA3TAB64 PO
[2020-04-10 14:54] LABS: BASOPHILS # (AUTO) 0.1 X10'3 (0-0.2); EOSINOPHILS % (AUTO) 0.4 % (0-6); HEMATOCRIT 44.4 % (35.0-45.0); HEMOGLOBIN 14.7 g/dl (12.0-16.0); LYMPHOCYTES # (AUTO) 1.1 X10'3 (1.1-4.8); LYMPHOCYTES % (AUTO) 18.7 % (21-51); MEAN CORPUSCULAR HEMOGLOBIN 30.6 PG (27.0-31.0); MEAN CORPUSCULAR HGB CONC 33.1 g/dL (33.0-36.5); MEAN CORPUSCULAR VOLUME 92.4 FL (78-98); MEAN PLATELET VOLUME 8.4 FL (7.4-10.4); MONOCYTES # (AUTO) 0.4 X10'3 (0-0.9); MONOCYTES % (AUTO) 7.3 % (2-12); NEUTROPHILS # (AUTO) 4.4 X10'3 (1.8-7.7); NEUTROPHILS % (AUTO) 72.6 % (42-75); PLATELET COUNT 194 X10'3 (140-440); RED BLOOD COUNT 4.81 X10'6 (4.20-5.60); RED CELL DISTRIBUTION WIDTH 14.4 % (11.5-14.5)
[2020-04-10 15:07] LABS: PARTIAL THROMBOPLASTIN TIME 64 SECONDS (22-32)
[2020-04-10 15:18] LABS: ALANINE AMINOTRANSFERASE 22 U/L (12-78); ALBUMIN 3.8 G/DL (3.4-5.0); ALBUMIN/GLOBULIN RATIO 1.1 (1.1-1.5); ALKALINE PHOSPHATASE 91 IU/L (46-116); ANION GAP 10 (8-16); ASPARTATE AMINO TRANSFERASE 30 U/L (10-37); BILIRUBIN,TOTAL 0.5 MG/DL (0.1-1.0); BLOOD UREA NITROGEN 20 MG/DL (7-18); BUN/CREATININE RATIO 15.5 (6.6-38.0); CALCIUM 9.2 MG/DL (8.5-10.1); CHLORIDE 105 MMOL/L (99-107); CREATININE 1.29 MG/DL (0.40-0.90); GLUCOSE 126 MG/DL (70-104); POTASSIUM 3.7 MMOL/L (3.5-5.1); SODIUM 142 MMOL/L (135-145); TOTAL CARBON DIOXIDE 27.5 MMOL/L (24-32); TOTAL PROTEIN 7.4 G/DL (6.4-8.2); eGFR 39 ML/MIN
[2020-04-10 16:29] VITALS: BP 159/88
== END 2020-04-10 16:31 | disposition home or self-care (01) ==
LOC: ER 14:05
DX: R06.02 Shortness of breath (principal); F41.9 Anxiety disorder, unspecified; I48.91 Unspecified atrial fibrillation; I10 Essential (primary) hypertension; E78.00 Pure hypercholesterolemia, unspecified; E03.9 Hypothyroidism, unspecified; M19.90 Unspecified osteoarthritis, unspecified site; G89.29 Other chronic pain; Z90.49 Acquired absence of other specified parts of digestive tract; Z90.710 Acquired absence of both cervix and uterus; Z88.2 Allergy status to sulfonamides; Z79.899 Other long term (current) drug therapy; Z86.19 Personal history of other infectious and parasitic diseases
CPT/HCPCS: 36415; 71045; 80053; 83880; 84484; 85025; 85610; 85730; 93005; 99285

== ENCOUNTER 2020-05-30 10:05 | Emergency (ER) | payer MEDICARE ==
[~2020-05-30] VITALS: Ht 165.1 cm; Wt 59.1 kg
[2020-05-30 10:56] LABS: BASOPHILS % (AUTO) 0.5 % (0-1); EOSINOPHILS % (AUTO) 0.3 % (0-6); HEMATOCRIT 44.3 % (35.0-45.0); HEMOGLOBIN 14.7 g/dl (12.0-16.0); LYMPHOCYTES # (AUTO) 0.7 X10'3 (1.1-4.8); MEAN CORPUSCULAR HEMOGLOBIN 30.6 PG (27.0-31.0); MEAN CORPUSCULAR HGB CONC 33.2 g/dL (33.0-36.5); MEAN CORPUSCULAR VOLUME 92.2 FL (78-98); MEAN PLATELET VOLUME 8.4 FL (7.4-10.4); MONOCYTES # (AUTO) 0.5 X10'3 (0-0.9); MONOCYTES % (AUTO) 7.3 % (2-12); NEUTROPHILS % (AUTO) 81.9 % (42-75); PLATELET COUNT 177 X10'3 (140-440); RED BLOOD COUNT 4.81 X10'6 (4.20-5.60); RED CELL DISTRIBUTION WIDTH 14.2 % (11.5-14.5); WHITE BLOOD COUNT 7.4 X10'3 (4.5-11.0)
[2020-05-30 11:11] LABS: ALANINE AMINOTRANSFERASE 16 U/L (12-78); ALBUMIN 3.4 G/DL (3.4-5.0); ALKALINE PHOSPHATASE 87 IU/L (46-116); ANION GAP 10 (8-16); ASPARTATE AMINO TRANSFERASE 23 U/L (10-37); BILIRUBIN,TOTAL 0.5 MG/DL (0.1-1.0); BLOOD UREA NITROGEN 16 MG/DL (7-18); BUN/CREATININE RATIO 15.4 (6.6-38.0); CALCIUM 8.7 MG/DL (8.5-10.1); CHLORIDE 104 MMOL/L (99-107); CREATININE 1.04 MG/DL (0.40-0.90); GLUCOSE 95 MG/DL (70-104); POTASSIUM 4.1 MMOL/L (3.5-5.1); SODIUM 141 MMOL/L (135-145); TOTAL CARBON DIOXIDE 27.2 MMOL/L (24-32); TOTAL PROTEIN 6.9 G/DL (6.4-8.2); eGFR 50 ML/MIN
[2020-05-30] MEDS ORDERED: cloNIDine 0.1 mg tablet PO ONE (11:45)
[2020-05-30 13:23] VITALS: BP 133/83
== END 2020-05-30 14:49 | disposition home or self-care (01) ==
LOC: ER 10:06
DX: I10 Essential (primary) hypertension (principal); R07.89 Other chest pain; R50.9 Fever, unspecified; R42 Dizziness and giddiness; R53.1 Weakness; R06.02 Shortness of breath; I48.91 Unspecified atrial fibrillation; E78.00 Pure hypercholesterolemia, unspecified; E03.9 Hypothyroidism, unspecified; M19.90 Unspecified osteoarthritis, unspecified site; G89.29 Other chronic pain; Z90.89 Acquired absence of other organs; Z90.710 Acquired absence of both cervix and uterus; Z98.890 Other specified postprocedural states; Z88.2 Allergy status to sulfonamides; Z79.899 Other long term (current) drug therapy
CPT/HCPCS: 36415; 71045; 80053; 83880; 84484; 85025; 93005; 99285

== ENCOUNTER 2021-06-10 14:27 | Emergency (ER) | payer MEDICARE ==
[~2021-06-10] VITALS: Ht 165.1 cm; Wt 56.8 kg
[~2021-06-10 14:27] MED LIST changes: -MECL-184 PO; +MECL-231 PO
[2021-06-10] MEDS ORDERED: normal saline 1000ML IV soln IVB ONE (14:40)
[2021-06-10 15:12] LABS: BASOPHILS # (AUTO) 0.1 X10'3 (0-0.2); BASOPHILS % (AUTO) 0.9 % (0-1); EOSINOPHILS # (AUTO) 0.2 X10'3 (0-0.9); EOSINOPHILS % (AUTO) 3.2 % (0-6); HEMATOCRIT 38.5 % (35.0-45.0); HEMOGLOBIN 13.1 g/dl (12.0-16.0); LYMPHOCYTES # (AUTO) 1.2 X10'3 (1.1-4.8); LYMPHOCYTES % (AUTO) 18.7 % (21-51); MEAN CORPUSCULAR HEMOGLOBIN 30.5 PG (27.0-31.0); MEAN CORPUSCULAR HGB CONC 34.1 g/dL (33.0-36.5); MEAN CORPUSCULAR VOLUME 89.3 FL (78-98); MEAN PLATELET VOLUME 8.6 FL (7.4-10.4); MONOCYTES # (AUTO) 0.6 X10'3 (0-0.9); MONOCYTES % (AUTO) 9.7 % (2-12); NEUTROPHILS # (AUTO) 4.3 X10'3 (1.8-7.7); NEUTROPHILS % (AUTO) 67.5 % (42-75); PLATELET COUNT 201 X10'3 (140-440); RED BLOOD COUNT 4.31 X10'6 (4.20-5.60); RED CELL DISTRIBUTION WIDTH 13.8 % (11.5-14.5); WHITE BLOOD COUNT 6.4 X10'3 (4.5-11.0)
[2021-06-10 15:20] LABS: ALANINE AMINOTRANSFERASE 22 U/L (12-78); ALBUMIN 3.3 G/DL (3.4-5.0); ALBUMIN/GLOBULIN RATIO 0.9 (1.1-1.5); ALKALINE PHOSPHATASE 103 IU/L (46-116); ANION GAP 5 (8-16); ASPARTATE AMINO TRANSFERASE 23 U/L (10-37); BILIRUBIN,TOTAL 0.3 MG/DL (0.1-1.0); BLOOD UREA NITROGEN 24 MG/DL (7-18); BUN/CREATININE RATIO 18.6 (6.6-38.0); CALCIUM 8.5 MG/DL (8.5-10.1); CHLORIDE 105 MMOL/L (99-107); CREATININE 1.29 MG/DL (0.40-0.90); GLUCOSE 95 MG/DL (70-104); LIPASE 116 U/L (73-393); POTASSIUM 3.8 MMOL/L (3.5-5.1); SODIUM 140 MMOL/L (135-145); TOTAL CARBON DIOXIDE 29.7 MMOL/L (24-32); TOTAL PROTEIN 6.8 G/DL (6.4-8.2); eGFR 39 ML/MIN
--- NOTE | 2021-06-10 16:08 | NUR ---
pt states she is unable to urinate at this time.
[2021-06-10] MEDS ORDERED: LIDOcaine 2% 10ml TOPICAL JELLY (Urojet) TP ONE (16:20)
[2021-06-10 16:28] LABS: CLARITY,URINE CLOUDY (Clear); COLOR,URINE RED (Yellow); UA COLLECTION TYPE CLN CATCH MIDSTREAM
[2021-06-10 16:36] LABS: RBC,URINE TNTC /HPF (0-2); SQUAMOUS EPITHELIAL CELL,UR FEW /LPF (FEW)
--- NOTE | 2021-06-10 16:36 | NUR ---
pt refusing sanchez and to change into hospital gown and states "this is insanity. i dont have my nightgown or my things or anyone to bring them to me. this is absolute insanity." informed jasen jones who states he will speak with pt.
[2021-06-10 16:38] LABS: BACTERIA,URINE FEW /HPF (Neg)
[2021-06-10 17:38] VITALS: BP 130/88
[2021-06-10] MEDS ORDERED: CEPH-585 PO (17:41)
== END 2021-06-10 18:00 | disposition home or self-care (01) ==
LOC: ER 14:27
DX: N39.0 Urinary tract infection, site not specified (principal); R31.9 Hematuria, unspecified; E11.22 Type 2 diabetes mellitus with diabetic chronic kidney disease; I12.9 Hypertensive chronic kidney disease with stage 1 through stage 4 chronic kidney disease, or unspecified chronic kidney disease; N18.9 Chronic kidney disease, unspecified; I48.91 Unspecified atrial fibrillation; E78.00 Pure hypercholesterolemia, unspecified; E03.9 Hypothyroidism, unspecified; M19.90 Unspecified osteoarthritis, unspecified site; G89.29 Other chronic pain; Z90.49 Acquired absence of other specified parts of digestive tract; Z90.710 Acquired absence of both cervix and uterus; Z88.2 Allergy status to sulfonamides; Z79.899 Other long term (current) drug therapy; Z79.01 Long term (current) use of anticoagulants
CPT/HCPCS: 36415; 51702; 74176; 80053; 81001; 83690; 85025; 87088; 99284; J7030; 96360

== ENCOUNTER 2021-12-24 06:42 | Inpatient (IN) | payer MEDICARE ==
[~2021-12-24] VITALS: Ht 165.1 cm; Wt 61.8 kg
[~2021-12-24 06:42] MED LIST changes: +CEPH-585 PO
--- NOTE | 2021-12-24 06:50 | NUR ---
xray at bedside.
[2021-12-24 07:42] LABS: BASOPHILS % (AUTO) 0.9 % (0-1); EOSINOPHILS # (AUTO) 0.1 X10'3 (0-0.9); EOSINOPHILS % (AUTO) 1.9 % (0-6); HEMATOCRIT 41.9 % (35.0-45.0); HEMOGLOBIN 13.8 g/dl (12.0-16.0); LYMPHOCYTES # (AUTO) 0.9 X10'3 (1.1-4.8); LYMPHOCYTES % (AUTO) 18.3 % (21-51); MEAN CORPUSCULAR HEMOGLOBIN 29.9 PG (27.0-31.0); MEAN CORPUSCULAR HGB CONC 32.9 g/dL (33.0-36.5); MEAN CORPUSCULAR VOLUME 90.8 FL (78-98); MEAN PLATELET VOLUME 8.7 FL (7.4-10.4); MONOCYTES # (AUTO) 0.4 X10'3 (0-0.9); MONOCYTES % (AUTO) 8.4 % (2-12); NEUTROPHILS # (AUTO) 3.5 X10'3 (1.8-7.7); NEUTROPHILS % (AUTO) 70.5 % (42-75); PLATELET COUNT 172 X10'3 (140-440); RED BLOOD COUNT 4.62 X10'6 (4.20-5.60); RED CELL DISTRIBUTION WIDTH 14.1 % (11.5-14.5)
[2021-12-24 07:49] LABS: ALANINE AMINOTRANSFERASE 18 U/L (12-78); ALBUMIN 3.5 G/DL (3.4-5.0); ALKALINE PHOSPHATASE 79 IU/L (46-116); ANION GAP 10 (8-16); ASPARTATE AMINO TRANSFERASE 25 U/L (10-37); BILIRUBIN,TOTAL 0.5 MG/DL (0.1-1.0); BLOOD UREA NITROGEN 23 MG/DL (7-18); BUN/CREATININE RATIO 19.5 (6.6-38.0); CALCIUM 8.6 MG/DL (8.5-10.1); CHLORIDE 106 MMOL/L (99-107); CREATININE 1.18 MG/DL (0.40-0.90); GLUCOSE 91 MG/DL (70-104); POTASSIUM 4.2 MMOL/L (3.5-5.1); SODIUM 143 MMOL/L (135-145); TOTAL CARBON DIOXIDE 26.8 MMOL/L (24-32); TOTAL PROTEIN 6.9 G/DL (6.4-8.2); eGFR 43 ML/MIN
[2021-12-24 08:21] LABS: CLARITY,URINE SLIGHTLY CLOUDY (Clear); COLOR,URINE YELLOW (Yellow); GLUCOSE, URINE NEGATIVE (Neg); KETONES,URINE NEGATIVE (Neg); LEUKOCYTE ESTERASE ,URINE NEGATIVE (Neg); NITRITES, URINE NEGATIVE (Neg); OCCULT BLOOD,URINE LARGE (Neg); PROTEIN,URINE NEGATIVE (Neg); UROBILINOGEN,URINE 0.2 E.U/dL (0.2-1.0)
[2021-12-24 08:25] LABS: UA COLLECTION TYPE CLN CATCH MIDSTREAM
[2021-12-24 08:26] LABS: MUCUS STRANDS FEW /LPF (Neg); TRANSITIONAL EPI CELLS,URINE MODERATE /HPF
[2021-12-24 08:27] LABS: HYALINE CASTS 0-3 /LPF (NEGATIVE); SQUAMOUS EPITHELIAL CELL,UR FEW /LPF (FEW)
[2021-12-24 08:28] LABS: BACTERIA,URINE FEW /HPF (Neg); RBC,URINE 50-100 /HPF (0-2)
[2021-12-24 08:29] LABS: WBC,URINE 0-4 /HPF (0-4)
--- NOTE | 2021-12-24 09:19 | NUR ---
dr. valadez at bedside.
[2021-12-24] MEDS ORDERED: regadenoson 0.4mg/5ml syringe IV PRN (09:35)
[2021-12-24] MEDS ORDERED: aspirin 325mg tablet PO ONE (09:35)
[2021-12-24] MEDS ORDERED: potassium CL 10mEq/100ml bag 100 ML IV PRN (09:35)
[2021-12-24] MEDS ORDERED: magnesium Cl slow-release 64mg tablet PO PRN (09:35)
[2021-12-24] MEDS ORDERED: nitroGLYCERIN 0.4mg SUBLingual tab SL PRN ×2 (09:35)
[2021-12-24] MEDS ORDERED: ondansetron/PF 4mg/2ml inj IV PRN (09:35)
[2021-12-24] MEDS ORDERED: magnesium 4gm in 100ml NS 100 ML IV PRN (09:35)
[2021-12-24] MEDS ORDERED: PERFLUTREN PROTEIN-A MICROSPHR (Optison) 0.22 MG/ML 3ML VIAL IV ONE (09:35)
[2021-12-24] MEDS ORDERED: magnesium 2GM in 50ml NS 50 ML IV PRN (09:35)
[2021-12-24] MEDS ORDERED: mag hydrox/Alum hydrox/simeth 30ml oral suspension PO PRN (09:35)
[2021-12-24] MEDS ORDERED: HYDROcodone/acetaminophen 5mg/325mg tablet PO PRN (09:35)
[2021-12-24] MEDS ORDERED: HYDROcodone/acetaminophen 10/325mg tab PO PRN (09:35)
[2021-12-24] MEDS ORDERED: acetaminophen 325mg tablet PO PRN ×2 (09:35)
[2021-12-24] MEDS ORDERED: aminophylline 500mg/20ml vial IV PRN (09:35)
[2021-12-24] MEDS ORDERED: metoprolol tartrate 1mg/ml inj IV PRN (09:35)
[2021-12-24] MEDS ORDERED: acetaminophen 650mg rectal suppository RC PRN (09:35)
[2021-12-24] MEDS ORDERED: POTASSIUM BICARB 20meq eff tab 20 MEQ TABLET.EFF PO PRN ×2 (09:35)
[2021-12-24] MEDS ORDERED: magnesium hydroxide 30ml (MOM) UD suspension PO PRN (09:35)
[2021-12-24] MEDS ORDERED: ondansetron 4mg rapidly disintigrating tab PO PRN (09:35)
[2021-12-24] MEDS ORDERED: morphine 2 MG/ML inj. syringe IV PRN ×2 (09:35)
--- NOTE | 2021-12-24 09:52 | NUR ---
RELIEVING RN FOR BREAK, PT GOING TO CT
[2021-12-24 11:14] LABS: MAGNESIUM 2.2 MG/DL (1.5-2.4); PHOSPHORUS 3.8 MG/DL (2.3-4.5)
--- NOTE | 2021-12-24 11:43 | NUR ---
telephone report to anish arenas.
[2021-12-24 12:30] VITALS: BP 168/84
[2021-12-24] MEDS ORDERED: Melatonin 3mg tablet PO PRN (13:15)
--- NOTE | 2021-12-24 14:35 | NUR ---
RELIEVING RN FOR LUNCH, PT IS SLEEPING QUIETLY ON BED, RESP EVEN AND UNLABORED
[2021-12-24 15:00] VITALS: BP 127/70
--- NOTE | 2021-12-24 17:30 | NUR ---
Pt arrived from ED this afternoon, independent in room. Pt states SOB has improved. Plans for gretchen scan tomorrow morning, NPO after midnight. Pt educated on POC, answered all questions. Pt in no signs of acute distress, VSS, hourly rounding completed, call light within reach. Addendum: 12/24/21 at 1823 by Ade Patel RN Problems reprioritized. Patient report given, questions answered & plan of care reviewed with REBECCA Castro.
[2021-12-24 18:00] VITALS: BP 144/107
--- NOTE | 2021-12-24 18:30 | NUR ---
Patient in room PCU 3015. I have received report from [employer] and had the opportunity to ask questions and assume patient care.
[2021-12-24] MEDS: K and/or MAG REPLACEMENT MC SCH ×2 (19:33→19:46)
[2021-12-24] MEDS: dabigatran 150mg capsule PO SCH (19:34)
[2021-12-24] MEDS: docusate sod 100mg capsule PO SCH (19:34)
[2021-12-24] MEDS ORDERED: temazepam 15mg capsule PO PRN (21:00)
[2021-12-24 22:00] VITALS: BP 125/62
[2021-12-25] VITALS (14 sets, daily range): BP systolic 98–154; BP diastolic 56–72
--- NOTE | 2021-12-25 06:26 | NUR ---
Problems reprioritized. Patient report given, questions answered & plan of care reviewed with deepa.
[2021-12-25] MEDS ORDERED: levoTHYROXINE 75mcg tablet PO SCH (07:00)
[2021-12-25 07:28] LABS: HEMATOCRIT 41.3 % (35.0-45.0); HEMOGLOBIN 13.7 g/dl (12.0-16.0); MEAN CORPUSCULAR HEMOGLOBIN 30.1 PG (27.0-31.0); MEAN CORPUSCULAR HGB CONC 33.2 g/dL (33.0-36.5); MEAN CORPUSCULAR VOLUME 90.8 FL (78-98); MEAN PLATELET VOLUME 8.8 FL (7.4-10.4); PLATELET COUNT 148 X10'3 (140-440); RED BLOOD COUNT 4.54 X10'6 (4.20-5.60); WHITE BLOOD COUNT 3.8 X10'3 (4.5-11.0)
[2021-12-25] MEDS ORDERED: albuterol 2.5 MG/3 ML nebule NEB PRN (07:30)
[2021-12-25] MEDS ORDERED: LORazepam 2 mg/ml vial IV PRN (07:30)
[2021-12-25] MEDS: dabigatran 150mg capsule PO SCH (07:44)
[2021-12-25] MEDS: docusate sod 100mg capsule PO SCH (07:44)
[2021-12-25 08:00] LABS: ALBUMIN 3.4 G/DL (3.4-5.0); ANION GAP 9 (8-16); BLOOD UREA NITROGEN 24 MG/DL (7-18); BUN/CREATININE RATIO 20.3 (6.6-38.0); CALCIUM 8.8 MG/DL (8.5-10.1); CHLORIDE 108 MMOL/L (99-107); CHOL/HDL RATIO 2.1 (0.00-4.99); CHOLESTEROL 135 MG/DL (0-200); CREATININE 1.18 MG/DL (0.40-0.90); GLUCOSE 90 MG/DL (70-104); HDL CHOLESTEROL 64 MG/DL (35-60); LDL CHOLESTEROL 54 MG/DL (50-100); MAGNESIUM 2.2 MG/DL (1.5-2.4); POTASSIUM 4.1 MMOL/L (3.5-5.1); SODIUM 143 MMOL/L (135-145); TOTAL CARBON DIOXIDE 25.9 MMOL/L (24-32); TRIGLYCERIDES 105 MG/DL (20-135); eGFR 43 ML/MIN
[2021-12-25] MEDS ORDERED: aspirin 81mg, enteric-coated 1 TAB TABLET.DR PO SCH (08:00)
[2021-12-25] MEDS ORDERED: aminophylline inj. 10 ML IV ONE (08:18)
--- NOTE | 2021-12-25 12:19 | NUR ---
PAGER ID: [phone] MESSAGE: JOSE ON [email or web address], [place] REPORT [place] ON [id number], THX
[2021-12-25] MEDS ORDERED: ATOR10TA87 PO (15:01)
[2021-12-25] MEDS ORDERED: ASPI-1071 PO (15:01)
[2021-12-25] MEDS ORDERED: NITR0.4T51 SL (15:01)
[2021-12-25] MEDS ORDERED: LOP25T PO (15:01)
--- NOTE | 2021-12-25 18:00 | NUR ---
Pt discharged by MD Hirsch. PIV and telemonitor removed. Pt's son came to pickler helper pt and did not make anybody aware. Called son, reviewed dc packet over the phone, son will pickler helper packet tomorrow morning. Verbalized understanding of instructions. Pt took all belongings with her.
== END 2021-12-25 17:45 | disposition home or self-care (01) | DRG 282 ==
LOC: ER 06:43 → ED HOLD 09:45 → PCU 3S 12:30 → OBSVTOIN 12-25 09:00
PROVIDERS: ADMIT Family Medicine; ATTEND Family Medicine
PROC: 4A02XM4 Measurement of Cardiac Total Activity, External Approach (ICD-10-PCS; principal; 2021-12-25)
PROC: 3E033HZ Introduction of Radioactive Substance into Peripheral Vein, Percutaneous Approach (ICD-10-PCS; 2021-12-25)
DX: I44.0 Atrioventricular block, first degree (principal); I21.A1 Myocardial infarction type 2; E03.9 Hypothyroidism, unspecified; E78.00 Pure hypercholesterolemia, unspecified; I10 Essential (primary) hypertension; G89.29 Other chronic pain; M54.9 Dorsalgia, unspecified; M19.90 Unspecified osteoarthritis, unspecified site; I48.91 Unspecified atrial fibrillation; Z79.01 Long term (current) use of anticoagulants; Z79.82 Long term (current) use of aspirin; Z90.49 Acquired absence of other specified parts of digestive tract; Z90.711 Acquired absence of uterus with remaining cervical stump; Z88.2 Allergy status to sulfonamides; Z79.899 Other long term (current) drug therapy
CPT/HCPCS: 36415; 71045; 71250; 78452; 80048; 80053; 80061; 81001; 83735; 83880; 84100; 84443; 84484; 85025; 85027; 87081; 93005; 93017; 93306; 94640; 94760; 96374; 99285; A9500; G0378; J0280; J2060; J2785

== ENCOUNTER 2022-07-02 07:15 | Observation (INO) | payer MEDICARE ==
[~2022-07-02] VITALS: Ht 165.1 cm; Wt 61.4 kg
[~2022-07-02 07:15] MED LIST changes: +ASPI-1071 PO; -CEPH-585 PO; +LOP25T PO; -MAGN400C PO; -MECL-231 PO; +NITR0.4T51 SL; -ROSU5TAB PO
[2022-07-02 07:57] LABS: BASOPHILS % (AUTO) 0.9 % (0-1); EOSINOPHILS # (AUTO) 0.1 X10'3 (0-0.9); EOSINOPHILS % (AUTO) 1.8 % (0-6); HEMATOCRIT 39.1 % (35.0-45.0); HEMOGLOBIN 13.2 g/dl (12.0-16.0); LYMPHOCYTES # (AUTO) 1.2 X10'3 (1.1-4.8); LYMPHOCYTES % (AUTO) 27.5 % (21-51); MEAN CORPUSCULAR HEMOGLOBIN 30.6 PG (27.0-31.0); MEAN CORPUSCULAR HGB CONC 33.8 g/dL (33.0-36.5); MEAN CORPUSCULAR VOLUME 90.6 FL (78-98); MEAN PLATELET VOLUME 8.3 FL (7.4-10.4); MONOCYTES # (AUTO) 0.4 X10'3 (0-0.9); MONOCYTES % (AUTO) 8.8 % (2-12); NEUTROPHILS # (AUTO) 2.6 X10'3 (1.8-7.7); PLATELET COUNT 194 X10'3 (140-440); RED BLOOD COUNT 4.32 X10'6 (4.20-5.60); RED CELL DISTRIBUTION WIDTH 14.4 % (11.5-14.5); WHITE BLOOD COUNT 4.2 X10'3 (4.5-11.0)
[2022-07-02 08:16] LABS: ALANINE AMINOTRANSFERASE 15 U/L (12-78); ALBUMIN 3.3 G/DL (3.4-5.0); ALKALINE PHOSPHATASE 88 IU/L (46-116); ANION GAP 6 (8-16); ASPARTATE AMINO TRANSFERASE 31 U/L (10-37); BILIRUBIN,TOTAL 0.4 MG/DL (0.1-1.0); BLOOD UREA NITROGEN 24 MG/DL (7-18); BUN/CREATININE RATIO 18.8 (6.6-38.0); CALCIUM 8.8 MG/DL (8.5-10.1); CHLORIDE 106 MMOL/L (99-107); CREATININE 1.28 MG/DL (0.40-0.90); GLUCOSE 93 MG/DL (70-104); POTASSIUM 4.3 MMOL/L (3.5-5.1); SODIUM 141 MMOL/L (135-145); TOTAL CARBON DIOXIDE 28.9 MMOL/L (24-32); TOTAL PROTEIN 6.6 G/DL (6.4-8.2); eGFR 40 ML/MIN
--- NOTE | 2022-07-02 11:06 | NUR ---
TO CT SCAN.
[2022-07-02 11:37] LABS: D-DIMER < 0.19 MG/L FEU (0-0.50)
[2022-07-02] MEDS ORDERED: magnesium hydroxide 30ml (MOM) UD suspension PO PRN (13:50)
[2022-07-02] MEDS ORDERED: morphine 2 MG/ML inj. syringe IV PRN ×2 (13:50)
[2022-07-02] MEDS ORDERED: ondansetron/PF 4mg/2ml inj IV PRN (13:50)
[2022-07-02] MEDS ORDERED: mag hydrox/Alum hydrox/simeth 30ml oral suspension PO PRN (13:50)
[2022-07-02] MEDS ORDERED: acetaminophen 325mg tablet PO PRN ×2 (13:50)
--- NOTE | 2022-07-02 17:10 | NUR ---
DR WESTON AT BEDSIDE.
[2022-07-02 19:40] VITALS: BP 146/81
[2022-07-02] MEDS: docusate sod 100mg capsule PO SCH (20:00)
[2022-07-02] MEDS ORDERED: ATOR20TA66 PO (23:46)
[2022-07-03 02:19] VITALS: BP 149/71
[2022-07-03 05:52] LABS: BASOPHILS % (AUTO) 1.1 % (0-1); EOSINOPHILS # (AUTO) 0.1 X10'3 (0-0.9); EOSINOPHILS % (AUTO) 2.4 % (0-6); HEMATOCRIT 39.8 % (35.0-45.0); HEMOGLOBIN 13.1 g/dl (12.0-16.0); LYMPHOCYTES % (AUTO) 25.3 % (21-51); MEAN CORPUSCULAR HEMOGLOBIN 29.8 PG (27.0-31.0); MEAN CORPUSCULAR HGB CONC 32.8 g/dL (33.0-36.5); MEAN CORPUSCULAR VOLUME 90.8 FL (78-98); MEAN PLATELET VOLUME 8.4 FL (7.4-10.4); MONOCYTES # (AUTO) 0.5 X10'3 (0-0.9); MONOCYTES % (AUTO) 11.5 % (2-12); NEUTROPHILS # (AUTO) 2.5 X10'3 (1.8-7.7); NEUTROPHILS % (AUTO) 59.7 % (42-75); PLATELET COUNT 200 X10'3 (140-440); RED BLOOD COUNT 4.39 X10'6 (4.20-5.60); RED CELL DISTRIBUTION WIDTH 14.2 % (11.5-14.5); WHITE BLOOD COUNT 4.1 X10'3 (4.5-11.0)
[2022-07-03 05:59] LABS: ALBUMIN 3.2 G/DL (3.4-5.0); ANION GAP 5 (8-16); BLOOD UREA NITROGEN 24 MG/DL (7-18); BUN/CREATININE RATIO 20.5 (6.6-38.0); CALCIUM 8.8 MG/DL (8.5-10.1); CHLORIDE 107 MMOL/L (99-107); CREATININE 1.17 MG/DL (0.40-0.90); GLUCOSE 94 MG/DL (70-104); POTASSIUM 3.9 MMOL/L (3.5-5.1); SODIUM 140 MMOL/L (135-145); TOTAL CARBON DIOXIDE 27.9 MMOL/L (24-32); eGFR 44 ML/MIN
[2022-07-03 07:47] VITALS: BP 152/70
[2022-07-03] MEDS ORDERED: FURO-150 PO (07:56)
[2022-07-03] MEDS: docusate sod 100mg capsule PO SCH (08:00)
--- NOTE | 2022-07-03 12:40 | NUR ---
Pt was DC'd as per Dr's orders. Pt was unhooked from all IV and tele. Belongings were gathered by pt and sent with pt. Education was provided at bedside and all questions were answered as well as packet being sent home. Meds were sent to pharmacy and pt stated they would get the meds and schedule a follow up appointment with their Dr. I wheeled pt down to the lobby and helped load them into their Uber that was ordered by their living facility. Pt was sent back to her apartment at her living facility.
== END 2022-07-03 12:05 | disposition home health service (06) ==
LOC: ER 07:16 → ED HOLD 13:52 → PCU 3S 19:30
PROVIDERS: ADMIT Internal Medicine; ATTEND Internal Medicine
DX: R07.89 Other chest pain (principal); R06.02 Shortness of breath; I48.0 Paroxysmal atrial fibrillation; E03.9 Hypothyroidism, unspecified; E78.00 Pure hypercholesterolemia, unspecified; I10 Essential (primary) hypertension; Z79.01 Long term (current) use of anticoagulants; Z79.82 Long term (current) use of aspirin; Z88.2 Allergy status to sulfonamides; Z90.49 Acquired absence of other specified parts of digestive tract; Z90.710 Acquired absence of both cervix and uterus; Z79.899 Other long term (current) drug therapy
CPT/HCPCS: 36415; 71045; 74176; 80048; 80053; 83880; 84443; 84484; 85025; 85379; 87081; 99291; G0378

== ENCOUNTER 2022-07-25 09:06 | Emergency (ER) | payer MEDICARE ==
[~2022-07-25] VITALS: Ht 165.1 cm; Wt 59.1 kg
[~2022-07-25 09:06] MED LIST changes: +ATOR20TA66 PO; +FURO-150 PO; -[UNRECOGNIZED DRUG - REMARK] PO
[2022-07-25 10:14] LABS: BASOPHILS # (AUTO) 0.1 X10'3 (0-0.2); EOSINOPHILS # (AUTO) 0.1 X10'3 (0-0.9); EOSINOPHILS % (AUTO) 0.8 % (0-6); HEMATOCRIT 43.8 % (35.0-45.0); HEMOGLOBIN 14.6 g/dl (12.0-16.0); LYMPHOCYTES # (AUTO) 1.2 X10'3 (1.1-4.8); MEAN CORPUSCULAR HEMOGLOBIN 30.1 PG (27.0-31.0); MEAN CORPUSCULAR HGB CONC 33.2 g/dL (33.0-36.5); MEAN CORPUSCULAR VOLUME 90.6 FL (78-98); MEAN PLATELET VOLUME 8.9 FL (7.4-10.4); MONOCYTES # (AUTO) 0.5 X10'3 (0-0.9); MONOCYTES % (AUTO) 7.2 % (2-12); NEUTROPHILS # (AUTO) 5.2 X10'3 (1.8-7.7); PLATELET COUNT 190 X10'3 (140-440); RED BLOOD COUNT 4.83 X10'6 (4.20-5.60); RED CELL DISTRIBUTION WIDTH 14.5 % (11.5-14.5)
[2022-07-25 10:22] LABS: ALANINE AMINOTRANSFERASE 13 U/L (12-78); ALBUMIN 3.7 G/DL (3.4-5.0); ALBUMIN/GLOBULIN RATIO 1.1 (1.1-1.5); ALKALINE PHOSPHATASE 94 IU/L (46-116); ANION GAP 9 (8-16); ASPARTATE AMINO TRANSFERASE 24 U/L (10-37); BILIRUBIN,TOTAL 0.6 MG/DL (0.1-1.0); BLOOD UREA NITROGEN 25 MG/DL (7-18); BUN/CREATININE RATIO 18.8 (10.0-20.0); CALCIUM 9.1 MG/DL (8.5-10.1); CHLORIDE 105 MMOL/L (99-107); CREATININE 1.33 MG/DL (0.40-0.90); GLUCOSE 101 MG/DL (70-104); POTASSIUM 3.8 MMOL/L (3.5-5.1); SODIUM 141 MMOL/L (135-145); TOTAL CARBON DIOXIDE 27.1 MMOL/L (24-32); eGFR 38 ML/MIN
[2022-07-25 10:30] LABS: MAGNESIUM 2.3 MG/DL (1.5-2.4)
--- NOTE | 2022-07-25 11:44 | NUR ---
WARM BLANKET PROVIDED PER PT REQUEST .
--- NOTE | 2022-07-25 13:49 | NUR ---
PT RESTING IN BED. NO CHG IN STATUS.
[2022-07-25 14:04] VITALS: BP 133/70
[2022-07-26] MEDS ORDERED: FURO20TA4 PO (13:13)
[2022-07-26] MEDS ORDERED: NITR0.4T51 SL (13:14)
[2022-07-26] MEDS ORDERED: LUTE40CA PO (13:15)
[2022-07-26] MEDS ORDERED: ISOS20TA15 PO (16:09)
[2022-07-26] MEDS ORDERED: BUPR100T5 PO (16:11)
== END 2022-07-25 20:36 | disposition home or self-care (01) ==
LOC: ER 09:06
DX: R06.2 Wheezing (principal); R07.9 Chest pain, unspecified; I11.9 Hypertensive heart disease without heart failure; I50.9 Heart failure, unspecified; G89.29 Other chronic pain; M54.9 Dorsalgia, unspecified; Z90.49 Acquired absence of other specified parts of digestive tract; Z98.890 Other specified postprocedural states; Z88.2 Allergy status to sulfonamides; Z79.899 Other long term (current) drug therapy
CPT/HCPCS: 36415; 71045; 80053; 83735; 83880; 84484; 85025; 93005; 99285

== ENCOUNTER 2022-07-26 10:21 | Emergency (ER) | payer MEDICARE ==
[~2022-07-26] VITALS: Ht 165.1 cm; Wt 60.9 kg
[2022-07-26 11:06] LABS: BASOPHILS # (AUTO) 0.1 X10'3 (0-0.2); BASOPHILS % (AUTO) 1.2 % (0-1); EOSINOPHILS # (AUTO) 0.1 X10'3 (0-0.9); HEMATOCRIT 42.3 % (35.0-45.0); HEMOGLOBIN 14.1 g/dl (12.0-16.0); LYMPHOCYTES # (AUTO) 1.1 X10'3 (1.1-4.8); LYMPHOCYTES % (AUTO) 19.8 % (21-51); MEAN CORPUSCULAR HEMOGLOBIN 30.2 PG (27.0-31.0); MEAN CORPUSCULAR HGB CONC 33.4 g/dL (33.0-36.5); MEAN CORPUSCULAR VOLUME 90.4 FL (78-98); MEAN PLATELET VOLUME 8.3 FL (7.4-10.4); MONOCYTES # (AUTO) 0.4 X10'3 (0-0.9); MONOCYTES % (AUTO) 6.8 % (2-12); NEUTROPHILS # (AUTO) 4.1 X10'3 (1.8-7.7); NEUTROPHILS % (AUTO) 71.2 % (42-75); PLATELET COUNT 194 X10'3 (140-440); RED BLOOD COUNT 4.68 X10'6 (4.20-5.60); RED CELL DISTRIBUTION WIDTH 14.4 % (11.5-14.5); WHITE BLOOD COUNT 5.8 X10'3 (4.5-11.0)
[2022-07-26 11:21] LABS: ALANINE AMINOTRANSFERASE 12 U/L (12-78); ALBUMIN 3.6 G/DL (3.4-5.0); ALBUMIN/GLOBULIN RATIO 1.1 (1.1-1.5); ALKALINE PHOSPHATASE 91 IU/L (46-116); ANION GAP 7 (8-16); ASPARTATE AMINO TRANSFERASE 22 U/L (10-37); BILIRUBIN,TOTAL 0.6 MG/DL (0.1-1.0); BLOOD UREA NITROGEN 29 MG/DL (7-18); BUN/CREATININE RATIO 21.2 (10.0-20.0); CHLORIDE 107 MMOL/L (99-107); CREATININE 1.37 MG/DL (0.40-0.90); GLUCOSE 108 MG/DL (70-104); SODIUM 144 MMOL/L (135-145); TOTAL CARBON DIOXIDE 30.3 MMOL/L (24-32); eGFR 37 ML/MIN
[2022-07-26] MEDS ORDERED: FURO20TA4 PO (13:13)
[2022-07-26] MEDS ORDERED: NITR0.4T51 SL (13:14)
[2022-07-26] MEDS ORDERED: LUTE40CA PO (13:15)
--- NOTE | 2022-07-26 15:43 | NUR ---
CALL PLACED TO [facility] THEY ARE UNABLE TO PROVIDE TRANSPORT BACK
[2022-07-26 15:52] VITALS: BP 135/76
[2022-07-26] MEDS ORDERED: ISOS20TA15 PO (16:09)
[2022-07-26] MEDS ORDERED: BUPR100T5 PO (16:11)
== END 2022-07-26 16:27 | disposition home or self-care (01) ==
LOC: ER 10:22
DX: R07.9 Chest pain, unspecified (principal); I11.9 Hypertensive heart disease without heart failure; I50.9 Heart failure, unspecified; G89.29 Other chronic pain; M54.9 Dorsalgia, unspecified; Z88.2 Allergy status to sulfonamides; Z79.899 Other long term (current) drug therapy
CPT/HCPCS: 36415; 71045; 80053; 83880; 84484; 85025; 93005; 99285

== ENCOUNTER 2022-07-29 08:38 | Emergency (ER) | payer MEDICARE ==
[~2022-07-29] VITALS: Ht 165.1 cm; Wt 65.0 kg
[~2022-07-29 08:38] MED LIST changes: -ASPI-1071 PO; +BUPR100T5 PO; -FURO-150 PO; +FURO20TA4 PO; +ISOS20TA15 PO; -LOP25T PO; +LUTE40CA PO; -MELA3TAB39 PO
--- NOTE | 2022-07-29 08:41 | NUR ---
prior to pt arriving in ER, pts daughter called in stating she was returning a call to us regarding her mother. Pt was not in our department at that time so I was unable to figure out who might have called her. shortly after talking to the daughter the patient showed up via EMS from [facility]. I recontacted the daughter and let her know that the phone call she rec'd was most likely from someone at [facility] letting her know that her mother was being transported here. asked the daughter to please come to our ER so she could express her concerns about her mother with the physician. daughter states that pt is constantly pressing her life alert button and coming to ER for unnecessary reasons.
[2022-07-29 09:17] LABS: BASOPHILS % (AUTO) 0.9 % (0-1); EOSINOPHILS % (AUTO) 1.1 % (0-6); HEMATOCRIT 41.1 % (35.0-45.0); HEMOGLOBIN 13.8 g/dl (12.0-16.0); LYMPHOCYTES # (AUTO) 0.9 X10'3 (1.1-4.8); LYMPHOCYTES % (AUTO) 19.5 % (21-51); MEAN CORPUSCULAR HEMOGLOBIN 30.4 PG (27.0-31.0); MEAN CORPUSCULAR HGB CONC 33.6 g/dL (33.0-36.5); MEAN CORPUSCULAR VOLUME 90.7 FL (78-98); MONOCYTES # (AUTO) 0.3 X10'3 (0-0.9); MONOCYTES % (AUTO) 6.8 % (2-12); NEUTROPHILS # (AUTO) 3.2 X10'3 (1.8-7.7); NEUTROPHILS % (AUTO) 71.7 % (42-75); PLATELET COUNT 173 X10'3 (140-440); RED BLOOD COUNT 4.53 X10'6 (4.20-5.60); RED CELL DISTRIBUTION WIDTH 14.2 % (11.5-14.5); WHITE BLOOD COUNT 4.5 X10'3 (4.5-11.0)
[2022-07-29 09:27] LABS: ALANINE AMINOTRANSFERASE 13 U/L (12-78); ALBUMIN 3.5 G/DL (3.4-5.0); ALBUMIN/GLOBULIN RATIO 1.1 (1.1-1.5); ALKALINE PHOSPHATASE 89 IU/L (46-116); ANION GAP 7 (8-16); ASPARTATE AMINO TRANSFERASE 26 U/L (10-37); BILIRUBIN,TOTAL 0.5 MG/DL (0.1-1.0); BLOOD UREA NITROGEN 21 MG/DL (7-18); BUN/CREATININE RATIO 16.2 (10.0-20.0); CALCIUM 8.9 MG/DL (8.5-10.1); CHLORIDE 107 MMOL/L (99-107); GLUCOSE 103 MG/DL (70-104); POTASSIUM 3.8 MMOL/L (3.5-5.1); SODIUM 142 MMOL/L (135-145); TOTAL CARBON DIOXIDE 28.1 MMOL/L (24-32); TOTAL PROTEIN 6.7 G/DL (6.4-8.2); eGFR 39 ML/MIN
[2022-07-29 15:33] VITALS: BP 152/78
== END 2022-07-29 15:45 | disposition home or self-care (01) ==
LOC: ER 08:38
DX: J84.10 Pulmonary fibrosis, unspecified (principal); Z00.00 Encounter for general adult medical examination without abnormal findings; I10 Essential (primary) hypertension; E78.00 Pure hypercholesterolemia, unspecified; E03.9 Hypothyroidism, unspecified; M19.90 Unspecified osteoarthritis, unspecified site; Z88.2 Allergy status to sulfonamides; Z90.710 Acquired absence of both cervix and uterus; Z98.890 Other specified postprocedural states
CPT/HCPCS: 36415; 71045; 80053; 83880; 85025; 93005; 99285

== ENCOUNTER 2022-12-06 08:16 | Emergency (ER) | payer MEDICARE ==
[~2022-12-06] VITALS: Ht 165.1 cm; Wt 63.6 kg
[2022-12-06 08:52] VITALS: TEMP 97.9
[2022-12-06 09:29] LABS: CLARITY,URINE CLEAR (Clear); COLOR,URINE YELLOW (Yellow); GLUCOSE, URINE NEGATIVE (Neg); KETONES,URINE NEGATIVE (Neg); LEUKOCYTE ESTERASE ,URINE NEGATIVE (Neg); NITRITES, URINE NEGATIVE (Neg); OCCULT BLOOD,URINE LARGE (Neg); PH,URINE 5.5 (4.8-8.0); PROTEIN,URINE NEGATIVE (Neg); UROBILINOGEN,URINE 0.2 E.U/dL (0.2-1.0)
[2022-12-06 09:34] LABS: UA COLLECTION TYPE CLN CATCH MIDSTREAM
[2022-12-06 09:35] LABS: BACTERIA,URINE NONE SEEN /HPF (Neg); MUCUS STRANDS FEW /LPF (Neg); SQUAMOUS EPITHELIAL CELL,UR FEW /LPF (FEW); WBC,URINE 0-4 /HPF (0-4)
[2022-12-06 09:36] LABS: BASOPHILS % (AUTO) 0.7 % (0-1); EOSINOPHILS # (AUTO) 0.1 X10'3 (0-0.9); EOSINOPHILS % (AUTO) 1.3 % (0-6); HEMATOCRIT 42.1 % (35.0-45.0); HEMOGLOBIN 13.9 g/dl (12.0-16.0); LYMPHOCYTES # (AUTO) 1.1 X10'3 (1.1-4.8); LYMPHOCYTES % (AUTO) 19.9 % (21-51); MEAN CORPUSCULAR HEMOGLOBIN 29.7 PG (27.0-31.0); MEAN CORPUSCULAR HGB CONC 32.9 g/dL (33.0-36.5); MEAN CORPUSCULAR VOLUME 90.3 FL (78-98); MEAN PLATELET VOLUME 8.6 FL (7.4-10.4); MONOCYTES # (AUTO) 0.4 X10'3 (0-0.9); MONOCYTES % (AUTO) 8.1 % (2-12); NEUTROPHILS # (AUTO) 3.9 X10'3 (1.8-7.7); PLATELET COUNT 179 X10'3 (140-440); RED BLOOD COUNT 4.66 X10'6 (4.20-5.60); RED CELL DISTRIBUTION WIDTH 14.9 % (11.5-14.5); WHITE BLOOD COUNT 5.5 X10'3 (4.5-11.0)
[2022-12-06 09:53] LABS: ALANINE AMINOTRANSFERASE 15 U/L (12-78); ALBUMIN 3.5 G/DL (3.4-5.0); ALBUMIN/GLOBULIN RATIO 0.9 (1.1-1.5); ALKALINE PHOSPHATASE 88 IU/L (46-116); ANION GAP 9 (8-16); ASPARTATE AMINO TRANSFERASE 22 U/L (10-37); BILIRUBIN,TOTAL 0.5 MG/DL (0.1-1.0); BLOOD UREA NITROGEN 25 MG/DL (7-18); BUN/CREATININE RATIO 19.8 (10.0-20.0); CALCIUM 9.2 MG/DL (8.5-10.1); CHLORIDE 107 MMOL/L (99-107); CREATININE 1.26 MG/DL (0.40-0.90); GLUCOSE 100 MG/DL (70-104); POTASSIUM 4.5 MMOL/L (3.5-5.1); SODIUM 142 MMOL/L (135-145); TOTAL CARBON DIOXIDE 25.9 MMOL/L (24-32); TOTAL PROTEIN 7.4 G/DL (6.4-8.2); eGFR 40 ML/MIN
[2022-12-06 11:26] LABS: D-DIMER < 0.19 MG/L FEU (0-0.50)
[2022-12-06 12:33] VITALS: BP 153/71; PULSE 61; RESP 18; O2SAT 98
== END 2022-12-06 13:31 | disposition home or self-care (01) ==
LOC: ER 08:17
DX: R06.02 Shortness of breath (principal); E78.00 Pure hypercholesterolemia, unspecified; I10 Essential (primary) hypertension; E03.9 Hypothyroidism, unspecified; M19.90 Unspecified osteoarthritis, unspecified site; G89.29 Other chronic pain; Z90.49 Acquired absence of other specified parts of digestive tract; Z90.710 Acquired absence of both cervix and uterus; Z98.890 Other specified postprocedural states; Z88.2 Allergy status to sulfonamides; Z79.899 Other long term (current) drug therapy
CPT/HCPCS: 36415; 71045; 80053; 81001; 83880; 84484; 85025; 85379; 93005; 99285

== ENCOUNTER 2022-12-24 12:44 | Inpatient (IN) | payer MEDICARE ==
[~2022-12-24] VITALS: Ht 167.6 cm; Wt 65.0 kg
[2022-12-24 13:23] LABS: BASOPHILS % (AUTO) 0.6 % (0-1); EOSINOPHILS % (AUTO) 0.5 % (0-6); HEMATOCRIT 43.9 % (35.0-45.0); HEMOGLOBIN 14.3 g/dl (12.0-16.0); LYMPHOCYTES # (AUTO) 1.2 X10'3 (1.1-4.8); LYMPHOCYTES % (AUTO) 18.8 % (21-51); MEAN CORPUSCULAR HEMOGLOBIN 29.4 PG (27.0-31.0); MEAN CORPUSCULAR HGB CONC 32.7 g/dL (33.0-36.5); MEAN CORPUSCULAR VOLUME 90.1 FL (78-98); MEAN PLATELET VOLUME 8.6 FL (7.4-10.4); MONOCYTES # (AUTO) 0.5 X10'3 (0-0.9); MONOCYTES % (AUTO) 7.1 % (2-12); NEUTROPHILS # (AUTO) 4.8 X10'3 (1.8-7.7); PLATELET COUNT 181 X10'3 (140-440); RED BLOOD COUNT 4.87 X10'6 (4.20-5.60); RED CELL DISTRIBUTION WIDTH 14.6 % (11.5-14.5); WHITE BLOOD COUNT 6.6 X10'3 (4.5-11.0)
[2022-12-24 13:29] LABS: ALANINE AMINOTRANSFERASE 12 U/L (12-78); ALBUMIN 3.4 G/DL (3.4-5.0); ALKALINE PHOSPHATASE 94 IU/L (46-116); ANION GAP 5 (8-16); ASPARTATE AMINO TRANSFERASE 22 U/L (10-37); BILIRUBIN,TOTAL 0.6 MG/DL (0.1-1.0); BLOOD UREA NITROGEN 22 MG/DL (7-18); BUN/CREATININE RATIO 18.6 (10.0-20.0); CALCIUM 8.9 MG/DL (8.5-10.1); CHLORIDE 105 MMOL/L (99-107); CREATININE 1.18 MG/DL (0.40-0.90); GLUCOSE 91 MG/DL (70-104); POTASSIUM 4.3 MMOL/L (3.5-5.1); SODIUM 138 MMOL/L (135-145); TOTAL CARBON DIOXIDE 27.7 MMOL/L (24-32); TOTAL PROTEIN 6.9 G/DL (6.4-8.2); eCRCL 30 ML/MIN; eGFR 43 ML/MIN
[2022-12-24 13:37] LABS: PRO BRAIN NATRIURETIC PEPTIDE 677 PG/ML (0-450)
[2022-12-24] MEDS ORDERED: aspirin 81mg tab.chew PO ONE (15:20)
[2022-12-24] MEDS ORDERED: nitroGLYCERIN 0.4mg SUBLingual tab SL PRN (15:20)
[2022-12-24] MEDS ORDERED: ondansetron/PF 4mg/2ml inj IV PRN (16:50)
[2022-12-24] MEDS ORDERED: acetaminophen 325mg tablet PO PRN ×2 (16:50)
[2022-12-24] MEDS ORDERED: magnesium hydroxide 30ml (MOM) UD suspension PO PRN (16:50)
[2022-12-24] MEDS ORDERED: mag hydrox/Alum hydrox/simeth 30ml oral suspension PO PRN (16:50)
[2022-12-24] MEDS ORDERED: morphine 2 MG/ML inj. syringe IV PRN ×2 (16:50)
[2022-12-24 17:10] LABS: APTT 45 SECONDS (22-32); INR 1.3 INR; PROTHROMBIN TIME 13.6 SECONDS (9.0-12.0)
--- NOTE | 2022-12-24 18:28 | NUR ---
tried to call report to nurse upstairs. nurse unable to take report at this time.
--- NOTE | 2022-12-24 18:53 | NUR ---
rECEIVED REPORT FROM eR NURSE . pT. TO FOLLOW.
--- NOTE | 2022-12-24 19:05 | NUR ---
Patient arrived to floor via gurney from Er accompanied by daughter. Patient ambulated to bathroom to void and then settled back into bed. A&O, in no distress.VS taken.
[2022-12-24 19:10] VITALS: BP 132/63; PULSE 65; RESP 19; TEMP 97.5; O2SAT 96
[2022-12-24 19:15] VITALS: RESP 19; O2SAT 96
--- NOTE | 2022-12-24 20:05 | NUR ---
D: [phone] MESSAGE: pt. [id number] now wants to be DNR. Daughter is PoA. Papers in chart. Please will you change the code status order.Lito Nixon [phone] (125 character message out of a maximum of [phone])
[2022-12-24] MEDS: docusate sod 100mg capsule PO SCH (20:41)
[2022-12-24] MEDS: dabigatran 150mg capsule PO SCH (20:41)
[2022-12-24 22:00] VITALS: BP 131/62; PULSE 76; RESP 15; TEMP 98.4; O2SAT 97
[2022-12-25 02:30] VITALS: BP 131/64; PULSE 63; RESP 18; TEMP 97.6; O2SAT 96
[2022-12-25 06:00] VITALS: BP 132/69; PULSE 65; RESP 18; TEMP 97.9; O2SAT 97
[2022-12-25 06:36] LABS: BASOPHILS # (AUTO) 0.1 X10'3 (0-0.2); BASOPHILS % (AUTO) 1.1 % (0-1); EOSINOPHILS # (AUTO) 0.1 X10'3 (0-0.9); EOSINOPHILS % (AUTO) 2.2 % (0-6); HEMATOCRIT 40.9 % (35.0-45.0); HEMOGLOBIN 13.6 g/dl (12.0-16.0); LYMPHOCYTES # (AUTO) 1.1 X10'3 (1.1-4.8); LYMPHOCYTES % (AUTO) 23.1 % (21-51); MEAN CORPUSCULAR HGB CONC 33.2 g/dL (33.0-36.5); MEAN CORPUSCULAR VOLUME 90.3 FL (78-98); MEAN PLATELET VOLUME 8.6 FL (7.4-10.4); MONOCYTES # (AUTO) 0.6 X10'3 (0-0.9); NEUTROPHILS # (AUTO) 2.9 X10'3 (1.8-7.7); NEUTROPHILS % (AUTO) 61.6 % (42-75); PLATELET COUNT 155 X10'3 (140-440); RED BLOOD COUNT 4.53 X10'6 (4.20-5.60); RED CELL DISTRIBUTION WIDTH 14.7 % (11.5-14.5); WHITE BLOOD COUNT 4.8 X10'3 (4.5-11.0)
[2022-12-25 06:52] LABS: ANION GAP 7 (8-16); BLOOD UREA NITROGEN 25 MG/DL (7-18); BUN/CREATININE RATIO 21.7 (10.0-20.0); CALCIUM 8.6 MG/DL (8.5-10.1); CHLORIDE 106 MMOL/L (99-107); CREATININE 1.15 MG/DL (0.40-0.90); GLUCOSE 88 MG/DL (70-104); POTASSIUM 3.9 MMOL/L (3.5-5.1); SODIUM 139 MMOL/L (135-145); TOTAL CARBON DIOXIDE 25.6 MMOL/L (24-32); eCRCL 32 ML/MIN; eGFR 45 ML/MIN
[2022-12-25] MEDS ORDERED: levoTHYROXINE 75mcg tablet PO SCH (07:00)
--- NOTE | 2022-12-25 07:00 | NUR ---
Problems reprioritized. Patient report given, questions answered & plan of care reviewed with Emelia FERNANDEZ.
[2022-12-25 08:00] VITALS: RESP 17; O2SAT 96
[2022-12-25] MEDS ORDERED: atorvastatin 20mg tablet PO SCH (08:00)
[2022-12-25] MEDS: docusate sod 100mg capsule PO SCH (08:00)
--- NOTE | 2022-12-25 08:17 | NUR ---
NOTIFIED DR WESTON THAT PATIENT HAS A POLST IN CHART WITH DNR FOR CODE STATUS
[2022-12-25] MEDS: dabigatran 150mg capsule PO SCH (09:00)
[2022-12-25 11:00] VITALS: BP 133/58; PULSE 69; RESP 18; TEMP 97.2; O2SAT 98
--- NOTE | 2022-12-25 12:22 | NUR ---
Plan to discharge Pt. today with transportation provided by [facility].
--- NOTE | 2022-12-25 14:03 | NUR ---
Pt. is discharging to front lobby her daughter wishes to meet her there.
== END 2022-12-25 14:00 | disposition home or self-care (01) | DRG 313 ==
LOC: ER 12:44 → ED HOLD 16:50 → PCU 3S 19:04
PROVIDERS: ADMIT Internal Medicine; ATTEND Internal Medicine
DX: R07.89 Other chest pain (principal); E03.9 Hypothyroidism, unspecified; E78.00 Pure hypercholesterolemia, unspecified; I48.0 Paroxysmal atrial fibrillation; G89.29 Other chronic pain; M54.9 Dorsalgia, unspecified; R77.8 Other specified abnormalities of plasma proteins; I12.9 Hypertensive chronic kidney disease with stage 1 through stage 4 chronic kidney disease, or unspecified chronic kidney disease; N18.30 Chronic kidney disease, stage 3 unspecified; Z88.2 Allergy status to sulfonamides; Z79.899 Other long term (current) drug therapy; Z90.49 Acquired absence of other specified parts of digestive tract; Z90.710 Acquired absence of both cervix and uterus; Z79.01 Long term (current) use of anticoagulants
CPT/HCPCS: 36415; 71045; 80048; 80053; 83880; 84484; 85025; 85610; 85730; 87081; 93005; 97116; 97161; 97530; 99285; G0378

== ENCOUNTER 2023-01-22 07:39 | Emergency (ER) | payer MEDICARE ==
[~2023-01-22] VITALS: Ht 165.1 cm; Wt 63.6 kg
[~2023-01-22 07:39] MED LIST changes: +ALBU90AE INH; +ASPI81TA53 PO; -BUPR100T5 PO; +BUSP5TAB3 PO; -FURO20TA4 PO; -ISOS20TA15 PO; -LUTE40CA PO; +METO-395 PO; -MULT-85 PO
[2023-01-22 07:41] VITALS: TEMP 98.6
[2023-01-22] MEDS ORDERED: levalbuterol 1.25mg/0.5ml nebule IH ONE (08:00)
[2023-01-22 08:21] LABS: BASOPHILS # (AUTO) 0.1 X10'3 (0-0.2); BASOPHILS % (AUTO) 1.1 % (0-1); EOSINOPHILS # (AUTO) 0.2 X10'3 (0-0.9); EOSINOPHILS % (AUTO) 3.9 % (0-6); HEMOGLOBIN 12.6 g/dl (12.0-16.0); INR 1.2 INR; LYMPHOCYTES # (AUTO) 1.1 X10'3 (1.1-4.8); LYMPHOCYTES % (AUTO) 23.4 % (21-51); MEAN CORPUSCULAR HGB CONC 33.1 g/dL (33.0-36.5); MEAN CORPUSCULAR VOLUME 90.6 FL (78-98); MEAN PLATELET VOLUME 8.7 FL (7.4-10.4); MONOCYTES # (AUTO) 0.5 X10'3 (0-0.9); MONOCYTES % (AUTO) 10.6 % (2-12); NEUTROPHILS # (AUTO) 2.9 X10'3 (1.8-7.7); PLATELET COUNT 174 X10'3 (140-440); PROTHROMBIN TIME 12.6 SECONDS (9.0-12.0); RED BLOOD COUNT 4.19 X10'6 (4.20-5.60); RED CELL DISTRIBUTION WIDTH 14.6 % (11.5-14.5); WHITE BLOOD COUNT 4.7 X10'3 (4.5-11.0)
[2023-01-22 08:30] LABS: ALANINE AMINOTRANSFERASE 16 U/L (12-78); ALBUMIN 3.1 G/DL (3.4-5.0); ALKALINE PHOSPHATASE 90 IU/L (46-116); ANION GAP 10 (8-16); ASPARTATE AMINO TRANSFERASE 29 U/L (10-37); BILIRUBIN,TOTAL 0.5 MG/DL (0.1-1.0); BLOOD UREA NITROGEN 18 MG/DL (7-18); BUN/CREATININE RATIO 15.8 (10.0-20.0); CALCIUM 8.7 MG/DL (8.5-10.1); CHLORIDE 107 MMOL/L (99-107); CREATININE 1.14 MG/DL (0.40-0.90); GLUCOSE 98 MG/DL (70-104); POTASSIUM 3.6 MMOL/L (3.5-5.1); SODIUM 142 MMOL/L (135-145); TOTAL CARBON DIOXIDE 25.2 MMOL/L (24-32); TOTAL PROTEIN 6.2 G/DL (6.4-8.2); eCRCL 31 ML/MIN; eGFR 45 ML/MIN
[2023-01-22] MEDS ORDERED: LEVALBUTEROL HCL 1.25 MG/3 ML VIAL.NEB INH ONE (08:35)
[2023-01-22 08:38] LABS: PRO BRAIN NATRIURETIC PEPTIDE 859 PG/ML (0-450)
[2023-01-22 08:44] VITALS: PULSE 57; RESP 22; O2SAT 97
[2023-01-22 08:51] VITALS: PULSE 58; RESP 16; O2SAT 97
[2023-01-22 09:51] VITALS: BP 141/97; PULSE 68; RESP 17; O2SAT 96
[2023-02-19] MEDS ORDERED: DABI150C PO (15:11)
[2023-02-19] MEDS ORDERED: METO-395 PO (15:11)
[2023-02-19] MEDS ORDERED: LEVO75TA7 PO (15:13)
[2023-02-19] MEDS ORDERED: ATOR20TA66 PO (15:13)
[2023-02-20] MEDS ORDERED: ALBU18HF2 INH (12:22)
[2023-02-20] MEDS ORDERED: BENZ-38 PO (12:22)
[2023-02-20] MEDS ORDERED: AZIT250T83 PO (12:22)
[2023-02-20] MEDS ORDERED: NAPR-1170 PO (12:22)
== END 2023-01-22 11:24 | disposition home or self-care (01) ==
LOC: ER 07:40
DX: R07.9 Chest pain, unspecified (principal); Z20.822 Contact with and (suspected) exposure to COVID-19; R06.02 Shortness of breath; E78.00 Pure hypercholesterolemia, unspecified; I10 Essential (primary) hypertension; G89.29 Other chronic pain; M54.9 Dorsalgia, unspecified; Z79.899 Other long term (current) drug therapy
CPT/HCPCS: 36415; 71045; 80053; 83880; 84484; 85025; 85610; 87811; 93005; 94760; 99285; J7614

== ENCOUNTER 2023-04-08 11:45 | Day surgery (SDC) | payer MEDICARE ==
[2023-04-08] VITALS (12 sets, daily range): BP systolic 134–168; BP diastolic 75–92; PULSE 66–74; RESP 12–24; TEMP 98.3; O2SAT 95–99
[~2023-04-08] VITALS: Ht 165.1 cm; Wt 59.6 kg
[~2023-04-08 11:45] MED LIST changes: +ALBU18HF2 INH; -ALBU90AE INH; -ASPI81TA53 PO; -BUSP5TAB3 PO; +LORazepam 0.5 MG tablet PO PRN; +NAPR-1170 PO; -NITR0.4T51 SL; +diphenhydrAMINE 25mg capsule PO PRN; +normal saline 1,000 ML IV SCH
[2023-04-08 12:22] LABS: BASOPHILS # (AUTO) 0.1 X10'3 (0-0.2); EOSINOPHILS % (AUTO) 0.5 % (0-6); HEMATOCRIT 41.1 % (35.0-45.0); HEMOGLOBIN 13.5 g/dl (12.0-16.0); LYMPHOCYTES # (AUTO) 1.1 X10'3 (1.1-4.8); LYMPHOCYTES % (AUTO) 19.3 % (21-51); MEAN CORPUSCULAR HEMOGLOBIN 29.5 PG (27.0-31.0); MEAN CORPUSCULAR HGB CONC 32.8 g/dL (33.0-36.5); MEAN PLATELET VOLUME 8.7 FL (7.4-10.4); MONOCYTES # (AUTO) 0.5 X10'3 (0-0.9); MONOCYTES % (AUTO) 8.6 % (2-12); NEUTROPHILS % (AUTO) 70.6 % (42-75); PLATELET COUNT 187 X10'3 (140-440); RED BLOOD COUNT 4.57 X10'6 (4.20-5.60); RED CELL DISTRIBUTION WIDTH 14.7 % (11.5-14.5); WHITE BLOOD COUNT 5.6 X10'3 (4.5-11.0)
[2023-04-08] MEDS ORDERED: Prevagen PO (12:31)
[2023-04-08] MEDS ORDERED: NITR0.4T51 SL (12:31)
[2023-04-08] MEDS ORDERED: VIT1CAPS9 PO (12:31)
[2023-04-08 12:36] LABS: ALBUMIN 3.6 G/DL (3.4-5.0); ANION GAP 6 (8-16); BLOOD UREA NITROGEN 23 MG/DL (7-18); BUN/CREATININE RATIO 19.2 (10.0-20.0); CALCIUM 8.7 MG/DL (8.5-10.1); CHLORIDE 105 MMOL/L (99-107); GLUCOSE 87 MG/DL (70-104); POTASSIUM 4.2 MMOL/L (3.5-5.1); PROTHROMBIN TIME 10.7 SECONDS (9.0-12.0); SODIUM 137 MMOL/L (135-145); TOTAL CARBON DIOXIDE 25.6 MMOL/L (24-32); eCRCL 30 ML/MIN; eGFR 42 ML/MIN
[2023-04-08] MEDS ORDERED: heparin 1,000unit/ml 10ml vial 10 ML ONE (14:07)
[2023-04-08] MEDS ORDERED: iohexol 350MG/ML 100ml bottle IV ONE (14:07)
[2023-04-08] MEDS ORDERED: verapamil 2.5 mg/ml inj IV ONE (14:07)
[2023-04-08] MEDS ORDERED: fentaNYL/PF 50MCG/1 ML 2ML syringe ONE (14:07)
[2023-04-08] MEDS ORDERED: LIDOcaine 1% (10mg/ml) 2ml vial ONE (14:07)
[2023-04-08] MEDS ORDERED: midazolam 1 mg/ML 2ml injection ONE (14:07)
[2023-04-08] MEDS ORDERED: LIDOcaine 1% (10mg/ml)w/preservative inj. 20ml MDV ONE (14:40)
[2023-04-08] MEDS ORDERED: HYDROcodone/acetaminophen 10/325mg tab PO PRN (15:20)
[2023-04-08] MEDS ORDERED: HYDROcodone/acetaminophen 5mg/325mg tablet PO PRN (15:20)
== END 2023-04-08 19:02 | disposition home or self-care (01) ==
LOC: SSTAY O 11:45
PROVIDERS: ATTEND Student in an Organized Health Care Education/Training Program
DX: R07.89 Other chest pain (principal); I25.2 Old myocardial infarction; I48.91 Unspecified atrial fibrillation; E78.5 Hyperlipidemia, unspecified; F03.90 Unspecified dementia, unspecified severity, without behavioral disturbance, psychotic disturbance, mood disturbance, and anxiety; E03.9 Hypothyroidism, unspecified; I11.0 Hypertensive heart disease with heart failure; I50.22 Chronic systolic (congestive) heart failure; Z79.899 Other long term (current) drug therapy; Z79.01 Long term (current) use of anticoagulants
CPT/HCPCS: 36415; 76937; 80048; 85025; 85610; 93005; 93458; 99152; 99153; J1644; J2250; J3010; J3490; J7030; Q0163; Q9967; A6258; C1760; C1894

== ENCOUNTER 2023-07-15 11:28 | Emergency (ER) | payer MEDICARE ==
[~2023-07-15] VITALS: Ht 165.1 cm; Wt 61.8 kg
[~2023-07-15 11:28] MED LIST changes: -LORazepam 0.5 MG tablet PO PRN; +NITR0.4T51 SL; +Prevagen PO; +VIT1CAPS9 PO; -diphenhydrAMINE 25mg capsule PO PRN; -normal saline 1,000 ML IV SCH
[2023-07-15 12:16] LABS: BASOPHILS % (AUTO) 0.7 % (0-1); EOSINOPHILS % (AUTO) 0.9 % (0-6); HEMATOCRIT 43.6 % (35.0-45.0); HEMOGLOBIN 14.6 g/dl (12.0-16.0); LYMPHOCYTES % (AUTO) 19.4 % (21-51); MEAN CORPUSCULAR HGB CONC 33.4 g/dL (33.0-36.5); MEAN PLATELET VOLUME 8.5 FL (7.4-10.4); MONOCYTES # (AUTO) 0.3 X10'3 (0-0.9); MONOCYTES % (AUTO) 6.6 % (2-12); NEUTROPHILS # (AUTO) 3.8 X10'3 (1.8-7.7); NEUTROPHILS % (AUTO) 72.4 % (42-75); PLATELET COUNT 188 X10'3 (140-440); RED BLOOD COUNT 4.85 X10'6 (4.20-5.60); RED CELL DISTRIBUTION WIDTH 14.9 % (11.5-14.5); WHITE BLOOD COUNT 5.3 X10'3 (4.5-11.0)
[2023-07-15 12:34] LABS: ALBUMIN 3.6 G/DL (3.4-5.0); ANION GAP 3 (8-16); BLOOD UREA NITROGEN 23 MG/DL (7-18); BUN/CREATININE RATIO 18.1 (10.0-20.0); CALCIUM 8.5 MG/DL (8.5-10.1); CHLORIDE 107 MMOL/L (99-107); CREATININE 1.27 MG/DL (0.40-0.90); GLUCOSE 101 MG/DL (70-104); POTASSIUM 4.3 MMOL/L (3.5-5.1); PRO BRAIN NATRIURETIC PEPTIDE 460 PG/ML (0-450); SODIUM 140 MMOL/L (135-145); TOTAL CARBON DIOXIDE 30.5 MMOL/L (24-32); eCRCL 28 ML/MIN; eGFR 40 ML/MIN
[2023-07-15] MEDS: normal saline 1000ML IV soln IVB ONE (14:48)
[2023-07-15 17:25] LABS: BILIRUBIN,URINE NEGATIVE (Neg); CLARITY,URINE SLIGHTLY CLOUDY (Clear); COLOR,URINE YELLOW (Yellow); GLUCOSE, URINE NEGATIVE (Neg); KETONES,URINE TRACE mg/dl (Neg); LEUKOCYTE ESTERASE ,URINE NEGATIVE (Neg); NITRITES, URINE NEGATIVE (Neg); OCCULT BLOOD,URINE LARGE (Neg); PROTEIN,URINE NEGATIVE (Neg); UROBILINOGEN,URINE 0.2 E.U/dL (0.2-1.0)
[2023-07-15 17:33] LABS: UA COLLECTION TYPE URINAL
[2023-07-15 17:34] LABS: MUCUS STRANDS FEW /LPF (Neg); SQUAMOUS EPITHELIAL CELL,UR FEW /LPF (FEW)
[2023-07-15 17:36] LABS: RBC,URINE 50-100 /HPF (0-2)
[2023-07-15 17:37] LABS: TRANSITIONAL EPI CELLS,URINE FEW /HPF
[2023-07-15 17:38] LABS: BACTERIA,URINE 1+ /HPF (Neg); WBC,URINE 0-4 /HPF (0-4)
[2023-07-16 05:22] VITALS: TEMP 97.8
[2023-07-16 08:05] VITALS: BP 158/75; PULSE 96; RESP 16; O2SAT 96
[2023-07-23] MEDS ORDERED: METO-395 PO (10:11)
== END 2023-07-16 08:11 | disposition home or self-care (01) ==
LOC: ER 11:29
DX: R53.1 Weakness (principal); R42 Dizziness and giddiness; E86.0 Dehydration; E78.00 Pure hypercholesterolemia, unspecified; I10 Essential (primary) hypertension; E03.9 Hypothyroidism, unspecified; G89.29 Other chronic pain; M54.9 Dorsalgia, unspecified; Z90.49 Acquired absence of other specified parts of digestive tract; Z79.899 Other long term (current) drug therapy; Z88.2 Allergy status to sulfonamides
CPT/HCPCS: 36415; 71045; 80048; 81001; 83880; 84145; 84484; 85025; 85379; 93005; 96360; 96361; 99285; J7030

== ENCOUNTER 2024-01-20 09:32 | Emergency (ER) | payer MEDICARE ==
[~2024-01-20] VITALS: Ht 162.6 cm; Wt 55.0 kg
[2024-01-20 10:34] LABS: BASOPHILS % (AUTO) 0.8 % (0-1); EOSINOPHILS % (AUTO) 0.7 % (0-6); HEMATOCRIT 43.9 % (35.0-45.0); HEMOGLOBIN 14.2 g/dl (12.0-16.0); LYMPHOCYTES # (AUTO) 1.1 X10'3 (1.1-4.8); LYMPHOCYTES % (AUTO) 25.5 % (21-51); MEAN CORPUSCULAR HEMOGLOBIN 29.8 PG (27.0-31.0); MEAN CORPUSCULAR HGB CONC 32.3 g/dL (33.0-36.5); MEAN CORPUSCULAR VOLUME 92.2 FL (78-98); MEAN PLATELET VOLUME 8.6 FL (7.4-10.4); MONOCYTES # (AUTO) 0.3 X10'3 (0-0.9); MONOCYTES % (AUTO) 8.1 % (2-12); NEUTROPHILS # (AUTO) 2.8 X10'3 (1.8-7.7); NEUTROPHILS % (AUTO) 64.9 % (42-75); PLATELET COUNT 176 X10'3 (140-440); RED BLOOD COUNT 4.77 X10'6 (4.20-5.60); RED CELL DISTRIBUTION WIDTH 14.9 % (11.5-14.5); WHITE BLOOD COUNT 4.3 X10'3 (4.5-11.0)
[2024-01-20 10:44] LABS: ALANINE AMINOTRANSFERASE 15 U/L (12-78); ALBUMIN 3.3 G/DL (3.4-5.0); ALKALINE PHOSPHATASE 78 IU/L (46-116); ANION GAP 9 (8-16); ASPARTATE AMINO TRANSFERASE 23 U/L (10-37); BILIRUBIN,TOTAL 0.6 MG/DL (0.1-1.0); BLOOD UREA NITROGEN 17 MG/DL (7-18); BUN/CREATININE RATIO 14.9 (10.0-20.0); CHLORIDE 106 MMOL/L (99-107); CREATININE 1.14 MG/DL (0.40-0.90); GLUCOSE 92 MG/DL (70-104); POTASSIUM 3.9 MMOL/L (3.5-5.1); SODIUM 141 MMOL/L (135-145); TOTAL CARBON DIOXIDE 25.6 MMOL/L (24-32); TOTAL PROTEIN 6.5 G/DL (6.4-8.2); eCRCL 29 ML/MIN; eGFR 45 ML/MIN
[2024-01-20 10:52] LABS: PRO BRAIN NATRIURETIC PEPTIDE 449 PG/ML (0-450)
[2024-01-20 12:00] LABS: D-DIMER 0.81 MG/L FEU (0-0.50)
[2024-01-20 12:27] VITALS: TEMP 98.4
[2024-01-20] MEDS: aspirin 325mg tablet PO ONE (12:32)
[2024-01-20 16:39] VITALS: BP 120/78; PULSE 70; RESP 16; O2SAT 97
== END 2024-01-20 16:39 | disposition home or self-care (01) ==
LOC: ER 09:33
DX: R07.89 Other chest pain (principal); I48.91 Unspecified atrial fibrillation; E78.00 Pure hypercholesterolemia, unspecified; I10 Essential (primary) hypertension; E03.9 Hypothyroidism, unspecified; M19.90 Unspecified osteoarthritis, unspecified site; Z88.2 Allergy status to sulfonamides; Z79.899 Other long term (current) drug therapy; Z98.890 Other specified postprocedural states; Z90.710 Acquired absence of both cervix and uterus
CPT/HCPCS: 36415; 71045; 80053; 83880; 84484; 85025; 85379; 93005; 99285

== ENCOUNTER 2024-06-11 19:14 | Inpatient (IN) | payer MEDICARE ==
[~2024-06-11] VITALS: Ht 165.1 cm; Wt 62.0 kg
[2024-06-11] MEDS: aspirin 81mg tab.chew PO ONE (19:50)
[2024-06-11 19:58] LABS: BASOPHILS # (AUTO) 0.1 X10'3 (0-0.2); EOSINOPHILS # (AUTO) 0.1 X10'3 (0-0.9); EOSINOPHILS % (AUTO) 1.4 % (0-6); HEMATOCRIT 41.5 % (35.0-45.0); HEMOGLOBIN 13.8 g/dl (12.0-16.0); LYMPHOCYTES # (AUTO) 1.4 X10'3 (1.1-4.8); LYMPHOCYTES % (AUTO) 26.8 % (21-51); MEAN CORPUSCULAR HEMOGLOBIN 29.8 PG (27.0-31.0); MEAN CORPUSCULAR HGB CONC 33.2 g/dL (33.0-36.5); MEAN CORPUSCULAR VOLUME 89.7 FL (78-98); MEAN PLATELET VOLUME 8.3 FL (7.4-10.4); MONOCYTES # (AUTO) 0.6 X10'3 (0-0.9); NEUTROPHILS # (AUTO) 3.1 X10'3 (1.8-7.7); NEUTROPHILS % (AUTO) 59.8 % (42-75); PLATELET COUNT 224 X10'3 (140-440); RED BLOOD COUNT 4.63 X10'6 (4.20-5.60); RED CELL DISTRIBUTION WIDTH 14.9 % (11.5-14.5); WHITE BLOOD COUNT 5.1 X10'3 (4.5-11.0)
[2024-06-11 20:19] LABS: C-REACTIVE PROTEIN 0.17 MG/DL (0.0-0.5); MAGNESIUM 2.1 MG/DL (1.5-2.4); PRO BRAIN NATRIURETIC PEPTIDE 601 PG/ML (0-450)
[2024-06-11] MEDS ORDERED: aspirin 81mg tab.chew PO ONE (20:35)
[2024-06-11 20:54] LABS: ALANINE AMINOTRANSFERASE 14 U/L (12-78); ALBUMIN 3.3 G/DL (3.4-5.0); ALBUMIN/GLOBULIN RATIO 0.8 (1.1-1.5); ALKALINE PHOSPHATASE 95 IU/L (46-116); ANION GAP 7 (8-16); ASPARTATE AMINO TRANSFERASE 21 U/L (10-37); BILIRUBIN,TOTAL 0.4 MG/DL (0.1-1.0); BLOOD UREA NITROGEN 18 MG/DL (7-18); BUN/CREATININE RATIO 14.1 (10.0-20.0); CALCIUM 8.5 MG/DL (8.5-10.1); CHLORIDE 102 MMOL/L (99-107); CREATININE 1.28 MG/DL (0.40-0.90); GLUCOSE 99 MG/DL (70-104); POTASSIUM 3.7 MMOL/L (3.5-5.1); SODIUM 137 MMOL/L (135-145); TOTAL CARBON DIOXIDE 28.3 MMOL/L (24-32); TOTAL PROTEIN 7.2 G/DL (6.4-8.2); eCRCL 27 ML/MIN; eGFR 39 ML/MIN
[2024-06-11] MEDS ORDERED: HYDROmorphone inj. 0.5 MG/0.5 ML DISP.SYRIN IV PRN (21:30)
[2024-06-11] MEDS ORDERED: magnesium hydroxide 30ml (MOM) UD suspension PO PRN (21:30)
[2024-06-11] MEDS ORDERED: morphine 2 MG/ML inj. syringe IV PRN ×2 (21:30)
[2024-06-11] MEDS ORDERED: acetaminophen 325mg tablet PO PRN ×2 (21:30)
[2024-06-11] MEDS ORDERED: magnesium sulf-water 4G/100mL 100 ML IV PRN (21:30)
[2024-06-11] MEDS: PERFLUTREN PROTEIN-A MICROSPHR (Optison) 0.22 MG/ML 3ML VIAL IV ONE (21:30)
[2024-06-11] MEDS ORDERED: ondansetron/PF 4mg/2ml inj IV PRN (21:30)
[2024-06-11] MEDS ORDERED: mag hydrox/Alum hydrox/simeth 30ml oral suspension PO PRN (21:30)
[2024-06-11] MEDS ORDERED: magnesium Cl slow-release 64mg tablet PO PRN (21:30)
[2024-06-11] MEDS ORDERED: potassium Cl 20 mEq SR tablet PO PRN ×2 (21:30)
[2024-06-11] MEDS ORDERED: magnesium sulf-water 2g/50mL 50 ML IV PRN (21:30)
[2024-06-11] MEDS ORDERED: potassium Cl 40MEQ/1/2NS 520ml 520 ML IV PRN (21:30)
[2024-06-11 22:02] LABS: HEMOGLOBIN A1C 5.2 % (4.5-6.2)
[2024-06-11] MEDS: heparin, porcine 5000 units/ml vial SQ SCH (23:29)
[2024-06-11 23:41] LABS: OSMOLALITY 294.5 MOSM/K (280-300)
[2024-06-11] MEDS ORDERED: iohexol 350MG/ML 100ml bottle IV ONE (23:47)
[2024-06-12] MEDS ORDERED: nitroGLYCERIN 0.4mg SUBLingual tab SL PRN ×2 (02:15→23:25)
[2024-06-12] MEDS: normal saline 1000ml 1,000 ML IV SCH (03:00)
[2024-06-12] MEDS: atorvastatin 20mg tablet PO SCH (03:00)
[2024-06-12 03:37] LABS: BILIRUBIN,URINE NEGATIVE (Neg); CLARITY,URINE CLEAR (Clear); COLOR,URINE YELLOW (Yellow); GLUCOSE, URINE NEGATIVE (Neg); KETONES,URINE NEGATIVE (Neg); LEUKOCYTE ESTERASE ,URINE NEGATIVE (Neg); OCCULT BLOOD,URINE SMALL (Neg); PROTEIN,URINE NEGATIVE (Neg); UROBILINOGEN,URINE 0.2 E.U/dL (0.2-1.0)
[2024-06-12 04:00] LABS: TOTAL PROTEIN,URINE RANDOM 12.8 MG/DL
[2024-06-12 04:05] LABS: NITRITES, URINE NEGATIVE (Neg); UA COLLECTION TYPE VOIDED
[2024-06-12 04:06] LABS: BACTERIA,URINE NONE SEEN /HPF (Neg); SQUAMOUS EPITHELIAL CELL,UR FEW /LPF (FEW); WBC,URINE NONE SEEN /HPF (0-4)
[2024-06-12 06:54] LABS: BASOPHILS % (AUTO) 1.1 % (0-1); EOSINOPHILS # (AUTO) 0.1 X10'3 (0-0.9); EOSINOPHILS % (AUTO) 2.3 % (0-6); HEMATOCRIT 41.6 % (35.0-45.0); LYMPHOCYTES # (AUTO) 1.3 X10'3 (1.1-4.8); LYMPHOCYTES % (AUTO) 33.8 % (21-51); MEAN CORPUSCULAR HEMOGLOBIN 30.1 PG (27.0-31.0); MEAN CORPUSCULAR HGB CONC 33.6 g/dL (33.0-36.5); MEAN CORPUSCULAR VOLUME 89.6 FL (78-98); MONOCYTES # (AUTO) 0.4 X10'3 (0-0.9); NEUTROPHILS % (AUTO) 52.8 % (42-75); PLATELET COUNT 211 X10'3 (140-440); RED BLOOD COUNT 4.65 X10'6 (4.20-5.60); RED CELL DISTRIBUTION WIDTH 14.7 % (11.5-14.5); WHITE BLOOD COUNT 3.7 X10'3 (4.5-11.0)
[2024-06-12] MEDS: levoTHYROXINE 75mcg tablet PO SCH (07:15)
[2024-06-12 07:19] LABS: ALANINE AMINOTRANSFERASE 14 U/L (12-78); ALBUMIN 3.2 G/DL (3.4-5.0); ALBUMIN/GLOBULIN RATIO 0.8 (1.1-1.5); ALKALINE PHOSPHATASE 94 IU/L (46-116); ANION GAP 4 (8-16); ASPARTATE AMINO TRANSFERASE 23 U/L (10-37); BILIRUBIN,TOTAL 0.6 MG/DL (0.1-1.0); BLOOD UREA NITROGEN 15 MG/DL (7-18); BUN/CREATININE RATIO 14.7 (10.0-20.0); CALCIUM 8.8 MG/DL (8.5-10.1); CHLORIDE 104 MMOL/L (99-107); CHOL/HDL RATIO 2.4 (0.00-4.99); CHOLESTEROL 179 MG/DL (0-200); CREATININE 1.02 MG/DL (0.40-0.90); GLUCOSE 83 MG/DL (70-104); HDL CHOLESTEROL 76 MG/DL (35-60); LDL CHOLESTEROL 84 MG/DL (50-100); SODIUM 139 MMOL/L (135-145); THYROID STIMULATING HORMONE 9.01 ulU/ml (0.34-4.50); TOTAL CARBON DIOXIDE 31.1 MMOL/L (24-32); TOTAL PROTEIN 7.1 G/DL (6.4-8.2); TRIGLYCERIDES 89 MG/DL (20-135); eCRCL 34 ML/MIN; eGFR 51 ML/MIN
[2024-06-12] MEDS: VIT C PO SCH (08:00)
[2024-06-12] MEDS: PREVAGEN 10 MG PO SCH (08:00)
[2024-06-12] MEDS: ZINC PO SCH (08:00)
[2024-06-12] MEDS: K and/or MAG REPLACEMENT MC SCH (08:00)
[2024-06-12] MEDS: VIT A PO SCH (08:00)
[2024-06-12] MEDS: COPPER PO SCH (08:00)
[2024-06-12] MEDS: VIT E PO SCH (08:00)
[2024-06-12] MEDS: metoprolol succinate 25mg (24-HOUR) SR. Tablet PO SCH (08:58)
[2024-06-12] MEDS: docusate sod 100mg capsule PO SCH (08:58)
[2024-06-12] MEDS: aspirin 81mg tab.chew PO SCH (08:59)
[2024-06-12] MEDS ORDERED: iohexol 350MG/ML 100ml bottle IV ONE (11:12)
[2024-06-12 19:00] VITALS: BP 174/81; PULSE 68; RESP 16; TEMP 98; O2SAT 98
[2024-06-12 20:00] VITALS: RESP 14; O2SAT 95
[2024-06-12 22:00] VITALS: BP 162/75; PULSE 71; RESP 14; TEMP 97.6; O2SAT 95
[2024-06-12] MEDS ORDERED: metoprolol tartrate 1mg/ml inj IV PRN (23:25)
[2024-06-12] MEDS ORDERED: aminophylline 250mg/10ml inj. IV PRN (23:25)
[2024-06-12] MEDS ORDERED: ipratropium/albuterol 3ml nebule NEB PRN (23:30)
[2024-06-13] VITALS (9 sets, daily range): BP systolic 124–186; BP diastolic 67–89; PULSE 60–76; RESP 16–18; TEMP 97.1; O2SAT 94–98
[2024-06-13 06:40] LABS: BASOPHILS # (AUTO) 0.1 X10'3 (0-0.2); BASOPHILS % (AUTO) 1.1 % (0-1); EOSINOPHILS # (AUTO) 0.1 X10'3 (0-0.9); EOSINOPHILS % (AUTO) 2.6 % (0-6); HEMATOCRIT 40.7 % (35.0-45.0); HEMOGLOBIN 13.6 g/dl (12.0-16.0); LYMPHOCYTES # (AUTO) 1.1 X10'3 (1.1-4.8); LYMPHOCYTES % (AUTO) 24.1 % (21-51); MEAN CORPUSCULAR HEMOGLOBIN 29.9 PG (27.0-31.0); MEAN CORPUSCULAR HGB CONC 33.4 g/dL (33.0-36.5); MEAN CORPUSCULAR VOLUME 89.5 FL (78-98); MEAN PLATELET VOLUME 8.9 FL (7.4-10.4); MONOCYTES # (AUTO) 0.5 X10'3 (0-0.9); MONOCYTES % (AUTO) 10.9 % (2-12); NEUTROPHILS # (AUTO) 2.8 X10'3 (1.8-7.7); NEUTROPHILS % (AUTO) 61.3 % (42-75); PLATELET COUNT 199 X10'3 (140-440); RED BLOOD COUNT 4.55 X10'6 (4.20-5.60); RED CELL DISTRIBUTION WIDTH 14.8 % (11.5-14.5); WHITE BLOOD COUNT 4.6 X10'3 (4.5-11.0)
[2024-06-13 07:05] LABS: ALANINE AMINOTRANSFERASE 13 U/L (12-78); ALBUMIN/GLOBULIN RATIO 0.8 (1.1-1.5); ALKALINE PHOSPHATASE 90 IU/L (46-116); ANION GAP 7 (8-16); ASPARTATE AMINO TRANSFERASE 24 U/L (10-37); BILIRUBIN,TOTAL 0.7 MG/DL (0.1-1.0); BLOOD UREA NITROGEN 15 MG/DL (7-18); BUN/CREATININE RATIO 16.7 (10.0-20.0); CALCIUM 8.7 MG/DL (8.5-10.1); CHLORIDE 105 MMOL/L (99-107); GLUCOSE 85 MG/DL (70-104); MAGNESIUM 2.1 MG/DL (1.5-2.4); POTASSIUM 3.6 MMOL/L (3.5-5.1); SODIUM 137 MMOL/L (135-145); TOTAL CARBON DIOXIDE 25.5 MMOL/L (24-32); TOTAL PROTEIN 6.8 G/DL (6.4-8.2); eCRCL 39 ML/MIN; eGFR 59 ML/MIN
[2024-06-13] MEDS ORDERED: aminophylline 500mg/20ml vial IV PRN (09:12)
[2024-06-13] MEDS: regadenoson 0.4mg/5ml syringe IV PRN (09:21)
== END 2024-06-13 17:43 | disposition home or self-care (01) | DRG 682 ==
LOC: ER 19:15 → ED HOLD 20:51 → EDBEDREQ 06-12 18:14 → ORTHO 4S 06-12 19:00
PROVIDERS: ADMIT Internal Medicine; ATTEND Family Medicine
PROC: 4A02XM4 Measurement of Cardiac Total Activity, External Approach (ICD-10-PCS; principal; 2024-06-13)
PROC: 3E033HZ Introduction of Radioactive Substance into Peripheral Vein, Percutaneous Approach (ICD-10-PCS; 2024-06-13)
DX: N17.0 Acute kidney failure with tubular necrosis (principal); I21.A1 Myocardial infarction type 2; F03.94 Unspecified dementia, unspecified severity, with anxiety; F03.93 Unspecified dementia, unspecified severity, with mood disturbance; E03.9 Hypothyroidism, unspecified; E78.00 Pure hypercholesterolemia, unspecified; G89.29 Other chronic pain; Z66 Do not resuscitate; I10 Essential (primary) hypertension; M54.9 Dorsalgia, unspecified; Z20.822 Contact with and (suspected) exposure to COVID-19; I48.91 Unspecified atrial fibrillation; Z90.49 Acquired absence of other specified parts of digestive tract; Z90.710 Acquired absence of both cervix and uterus
CPT/HCPCS: 36415; 71045; 71275; 78452; 80053; 80061; 81001; 82570; 82948; 83036; 83735; 83880; 83930; 83935; 84156; 84300; 84443; 84484; 85025; 85379; 85651; 86140; 87081; 87207; 87502; 87503; 87811; 93005; 93017; 93306; 94760; 99285; A9500; G0378; J1644; J2785; J7030; Q9967